=== PATIENT | female | born 1995 | race Caucasian/White ===

== ENCOUNTER 2017-03-27 17:02 | Emergency (ER) | payer SELFPAY ==
[2017-03-27 17:08] VITALS: BP 118/74
--- NOTE | 2017-03-27 17:23 | ER Document Report ---
ED ENT - General Chief Complaint: Sore Throat Stated Complaint: HEADACHE,CONGESTION,SORE THROAT Time Seen by Provider: 03/27/17 17:15 Mode of Arrival: Ambulatory Information source: Patient TRAVEL OUTSIDE OF THE [place] IN LAST 30 DAYS: No - HPI Patient complains to provider of: Nose problem, Throat problem Onset: Other - 4 days Onset/Duration: Gradual, Persistent Quality of pain: Achy Severity: Moderate Pain Level: 3 Associated symptoms: Chills, Congestion, Cough, Runny nose, Sinus pain, Sinus drainage Notes: Is a 21-year-old female who presents to the emergency room complaining of nasal congestion with sore throat and runny nose, as well as cough productive of greenish phlegm 4 days, she denies any sick contacts - Related Data Allergies/Adverse Reactions: chlorpromazine HCl [From Thorazine] Allergy (Verified 03/27/17 17:08) Iodinated Contrast- Oral and IV Dye [IV Dye, Iodine Containing] Allergy ( Verified 03/27/17 17:08) nalbuphine HCl [From Nubain] Allergy (Verified 03/27/17 17:08) Penicillins Allergy (Verified 03/27/17 17:08) quetiapine fumarate [From Seroquel] Allergy (Verified 03/27/17 17:08) Past Medical History - General Information source: Patient - Social History Smoking Status: Never Smoker Family History: Reviewed & Not Pertinent Patient has suicidal ideation: No Patient has homicidal ideation: No Pulmonary Medical History: Reports: Hx Asthma Neurological Medical History: Reports: Hx Migraine, Hx Seizures Renal/ Medical History: Denies: Hx Peritoneal Dialysis Psychiatric Medical History: Reports: Hx Anxiety, Hx Bipolar Disorder, Hx Depression - Immunizations Hx Diphtheria, Pertussis, Tetanus Vaccination: Yes Review of Systems - Review of Systems Constitutional: Chills EENT: See HPI Cardiovascular: No symptoms reported Respiratory: No symptoms reported Gastrointestinal: No symptoms reported Genitourinary: No symptoms reported Female Genitourinary: No symptoms reported Musculoskeletal: No symptoms reported Skin: No symptoms reported Hematologic/Lymphatic: No symptoms reported Neurological/Psychological: No symptoms reported -: Yes All other systems reviewed and negative Physical Exam - Vital signs Vitals: Temp Pulse Resp BP Pulse Ox 98.0 F 91 16 118/74 99 03/27/17 17:06 03/27/17 17:06 03/27/17 17:06 03/27/17 17:06 03/27/17 17:06 - Notes Notes: - General General appearance: Appears well, Alert In distress: None - HEENT Head: Normocephalic, Atraumatic Eyes: Normal Conjunctiva: Normal Extraocular movements intact: Yes Eyelashes: Normal Pupils: PERRL - Respiratory Respiratory status: No respiratory distress - Cardiovascular Rhythm: Regular - Abdominal Inspection: Normal - Back Back: Normal - Extremities General upper extremity: Normal inspection General lower extremity: Normal inspection - Neurological Neuro grossly intact: Yes Orientation: AAOx4 Av Coma Scale Eye Opening: Spontaneous Av Coma Scale Verbal: Oriented [place] Coma Scale Motor: Obeys Commands Av Coma Scale Total: 15 - Psychological Associated symptoms: Normal affect, Normal mood - Skin Skin Temperature: Warm Skin Moisture: Dry Skin Color: Normal - HEENT Sinus: Maxillary, Tenderness Mouth/Lips: Normal Mucous membranes: Normal Pharynx: Erythema, Tonsillar hypertrophy. No: Exudate Course - Vital Signs Vital signs: Temp Pulse Resp BP Pulse Ox 98.0 F 91 16 118/74 99 03/27/17 17:06 03/27/17 17:06 03/27/17 17:06 03/27/17 17:06 03/27/17 17:06 Discharge - Discharge Clinical Impression: Sinusitis Qualifiers: Sinusitis location: maxillary Chronicity: acute Recurrence: non-recurrent Qualified Code(s): J01.00 - Acute maxillary sinusitis, unspecified Condition: Stable Disposition: HOME, SELF-CARE Instructions: Sore Throat ([facility]), Sinusitis ([facility]) Additional Instructions: Follow up with your primary care provider in one to 2 days. Return to the emergency room immediately if symptoms worsen or any additional concerns. Prescriptions: Doxycycline Hyclate 100 mg PO BID #20 tablet Forms: Return to Work
== END 2017-03-27 18:08 | disposition home or self-care (01) ==
LOC: ER 17:02
DX: J01.00 Acute maxillary sinusitis, unspecified (principal); J02.9 Acute pharyngitis, unspecified; R51 Headache; R09.81 Nasal congestion; R09.89 Other specified symptoms and signs involving the circulatory and respiratory systems
CPT/HCPCS: 81025; 99283

== ENCOUNTER 2017-05-24 10:10 | Emergency (ER) | payer SELFPAY ==
--- NOTE | 2017-05-24 10:39 | ER Document Report ---
ED Medical Screen (RME) - General Chief Complaint: Numbness Stated Complaint: NUMBNESS IN BODY, LEGS Time Seen by Provider: 05/24/17 10:29 Notes: 21-year-old female patient with long history of PTSD, bipolar disorder, anxiety , panic disorder, depression, seizure disorder, learning disorder. She states she is on no medications at this time. Previous visits she was reportedly on Dilantin, today she states she has never taken Dilantin. She reports this morning about 9:35 AM while brushing her teeth she lost feeling in her legs and head pain and needle sensation in her arms. She also complained of double vision, nausea, and pain in her back. She states her last menstrual period was 03/22/2017 and she is . She further states that the feeling is starting to come back in her arms now but she still cannot use her lower extremities. I have greeted and performed a rapid initial assessment of this patient. A comprehensive ED assessment and evaluation of the patient, analysis of test results and completion of the medical decision making process will be conducted by additional ED providers. TRAVEL OUTSIDE OF THE [place] IN LAST 30 DAYS: No - Related Data Allergies/Adverse Reactions: chlorpromazine HCl [From Thorazine] Allergy (Verified 03/27/17 17:08) Iodinated Contrast- Oral and IV Dye [IV Dye, Iodine Containing] Allergy ( Verified 03/27/17 17:08) nalbuphine HCl [From Nubain] Allergy (Verified 03/27/17 17:08) Penicillins Allergy (Verified 03/27/17 17:08) quetiapine fumarate [From Seroquel] Allergy (Verified 03/27/17 17:08) Past Medical History - Social History Chew tobacco use (# tins/day): No Frequency of alcohol use: None Drug Abuse: None Pulmonary Medical History: Reports: Hx Asthma Neurological Medical History: Reports: Hx Migraine, Hx Seizures Renal/ Medical History: Denies: Hx Peritoneal Dialysis Psychiatric Medical History: Reports: Hx Anxiety, Hx Bipolar Disorder, Hx Depression Surgical Hx: Negative - Immunizations Hx Diphtheria, Pertussis, Tetanus Vaccination: Yes Physical Exam - Vital signs Vitals: Temp Pulse Resp BP Pulse Ox 98.7 F 86 14 106/63 100 05/24/17 10:13 05/24/17 10:13 05/24/17 10:13 05/24/17 10:13 05/24/17 10:13 Course - Vital Signs Vital signs: Temp Pulse Resp BP Pulse Ox 98.7 F 86 14 106/63 100 05/24/17 10:13 05/24/17 10:13 05/24/17 10:13 05/24/17 10:13 05/24/17 10:13
[2017-05-24 11:03] LABS: ABSOLUTE LYMPHOCYTES (AUTO) 0.9 10^3/uL (0.5-4.7); ABSOLUTE MONOCYTES (AUTO) 0.4 10^3/uL (0.1-1.4); ABSOLUTE NEUT (AUTO) 4.4 10^3/uL (1.7-8.2); BASOPHILS % (AUTO) 0.7 % (0-2); EOSINOPHILS % (AUTO) 0.6 % (0-6); HEMATOCRIT 37.1 % (36.0-47.0); HEMOGLOBIN 12.8 g/dL (12.0-15.5); HGB HCT DIFFERENCE 1.3; LYMPHOCYTES % (AUTO) 15.9 % (13-45); MEAN CORPUSCULAR HEMOGLOBIN 31.8 pg (27.0-33.4); MEAN CORPUSCULAR HGB CONC 34.5 g/dL (32.0-36.0); MEAN CORPUSCULAR VOLUME 92 fl (80-97); MONOCYTES % (AUTO) 6.5 % (3-13); RED BLOOD COUNT 4.02 10^6/uL (3.72-5.28); RED CELL DISTRIBUTION WIDTH 13.1 % (11.5-14.0); SEGMENTED NEUTROPHILS % (AUTO) 76.3 % (42-78); WHITE BLOOD COUNT 5.7 10^3/uL (4.0-10.5)
[2017-05-24 11:17] LABS: ALANINE AMINOTRANSFERASE 22 U/L (9-52); ALBUMIN 4.2 g/dL (3.5-5.0); ALKALINE PHOSPHATASE 39 U/L (38-126); ANION GAP 10 (5-19); ASPARTATE AMINO TRANSFERASE 14 U/L (14-36); BILIRUBIN,DIRECT 0.2 mg/dL (0.0-0.4); BILIRUBIN,TOTAL 0.6 mg/dL (0.2-1.3); BLOOD UREA NITROGEN 8 mg/dL (7-20); CALCIUM 9.3 mg/dL (8.4-10.2); CARBON DIOXIDE 23 mmol/L (22-30); CHLORIDE 105 mmol/L (98-107); CREATININE RESULT 0.64 mg/dL (0.52-1.25); GLUCOSE 88 mg/dL (75-110); POTASSIUM 4.4 mmol/L (3.6-5.0); SODIUM 137.6 mmol/L (137-145); TOTAL PROTEIN 7.2 g/dL (6.3-8.2)
--- NOTE | 2017-05-24 11:27 | ER Document Report ---
ED Neuro Symptoms/Deficit - General Chief Complaint: Numbness Stated Complaint: NUMBNESS IN BODY, LEGS Time Seen by Provider: 05/24/17 10:29 Mode of Arrival: Wheelchair Information source: Patient Notes: Patient presents reporting that around 930 today while she was brushing her teeth that she suddenly felt sweaty and felt faint and then fell on the floor. Patient states that she was awake but she had some shaking of her whole body while she was laying on the floor and is concerned that she might of possibly had a seizure. Patient states that initially she had some double vision and that she could not feel or move her arms or legs bilaterally. Patient states that her vision has since resolved she has normal sensation to her upper extremities and can move her upper extremities. Patient states that she has a pins and needle sensation to bilateral lower extremities from mid thigh distally. Patient denies any recent illness, fever, or drug use. Patient states she has not had any seizures for over 5 years and has not been on any medication for seizures for several years. TRAVEL OUTSIDE OF THE [place] IN LAST 30 DAYS: No - HPI Patient complains to provider of: Paresthesia, Vision Changes Onset: This morning Awoke with symptoms: No Duration: Better Quality of pain: No pain Pain Level: Denies Loss of consciousness: No loss of consciousness Baseline Cognitive: Alert, oriented X 3 Baseline Gait: Walks w/o assistance Alert To: Name/Voice Patient Orientation: Person New weakness: LUE, LLE, RUE, RLE Altered sensation: LUE, LLE, RUE, RLE Vision problem/glaucoma: Yes Associated symptoms: Seizure - possible, Sweaty. denies: Chest pain, Back pain , Falling injury, Nausea, Vomiting Similar symptoms previously: No Recently seen / treated by doctor: No - Related Data Allergies/Adverse Reactions: chlorpromazine HCl [From Thorazine] Allergy (Verified 03/27/17 17:08) Iodinated Contrast- Oral and IV Dye [IV Dye, Iodine Containing] Allergy ( Verified 03/27/17 17:08) nalbuphine HCl [From Nubain] Allergy (Verified 03/27/17 17:08) Penicillins Allergy (Verified 03/27/17 17:08) quetiapine fumarate [From Seroquel] Allergy (Verified 03/27/17 17:08) Home Medications: Current Home Medications No Home Medications 05/24/17 [History] Past Medical History - General Information source: Patient Last Menstrual Period: 03/22/17 - Social History Smoking Status: Never Smoker Chew tobacco use (# tins/day): No Frequency of alcohol use: None Drug Abuse: None Occupation: none Lives with: Spouse/Significant other Family History: Reviewed & Not Pertinent Pulmonary Medical History: Reports: Hx Asthma Neurological Medical History: Reports: Hx Migraine, Hx Seizures Renal/ Medical History: Denies: Hx Peritoneal Dialysis Psychiatric Medical History: Reports: Hx Anxiety, Hx Bipolar Disorder, Hx Depression Surgical Hx: Negative - Immunizations Hx Diphtheria, Pertussis, Tetanus Vaccination: Yes Review of Systems - Review of Systems Constitutional: No symptoms reported. denies: Fever, Recent illness EENT: Double vision - initially, now resolved Cardiovascular: No symptoms reported Respiratory: No symptoms reported. denies: Cough, Short of breath Gastrointestinal: No symptoms reported. denies: Abdominal pain, Nausea, Vomiting Genitourinary: No symptoms reported Female Genitourinary: No symptoms reported Musculoskeletal: No symptoms reported. denies: Back pain, Neck pain Skin: No symptoms reported Hematologic/Lymphatic: No symptoms reported Neurological/Psychological: Weakness, Seizure - possible, Numbness, Tingling Physical Exam - Vital signs Vitals: Temp Pulse Resp BP Pulse Ox 98.7 F 86 14 106/63 100 05/24/17 10:13 05/24/17 10:13 05/24/17 10:13 05/24/17 10:13 05/24/17 10:13 - General General appearance: Appears well, Alert In distress: None - HEENT Head: Normocephalic, Atraumatic Eyes: Normal Conjunctiva: Normal Extraocular movements intact: Yes Eyelashes: Normal Pupils: PERRL Ears: Normal External canal: Normal Tympanic membrane: Normal Nasal: Normal Mouth/Lips: Normal, Other - Tongue intact without any abrasions. No: Laceration Mucous membranes: Normal Pharynx: Normal Neck: Normal, Supple. No: Meningismus - Respiratory Respiratory status: No respiratory distress Chest status: Nontender Breath sounds: Normal. No: Rales, Rhonchi, Stridor, Wheezing Chest palpation: Normal - Cardiovascular Rhythm: Regular Heart sounds: S1 appreciated, S2 appreciated Murmur: No - Abdominal Inspection: Normal Distension: No distension Tenderness: Nontender - Back Back: Normal. No: Deformity/step-off, CVA tenderness, Vertebra tenderness - Extremities General upper extremity: Normal inspection, Nontender, Normal ROM General lower extremity: Normal inspection - Neurological Neuro grossly intact: Yes Cognition: Normal [place] Coma Scale Eye Opening: Spontaneous [place] Coma Scale Verbal: Oriented Av Coma Scale Motor: Obeys Commands [place] Coma Scale Total: 15 Speech: Normal Cranial nerves: Normal Cerebellar coordination: No: Gait ataxia Motor strength normal: LUE, RUE Additional motor exam normals: Equal gas examiner Notes: With distraction patient was able to sit up unassisted, and when a bruise was noted on her leg, patient was able to rotate her leg to the side for better visualization of the contusion. - Psychological Associated symptoms: Normal affect, Normal mood - Skin Skin Temperature: Warm Skin Moisture: Dry Skin Color: Normal Course - Re-evaluation Re-evalutation: 05/24/17 11:26 dye house wheel operator states that patient was able to stand up from the wheelchair in triage so that she could obtain a urine specimen. 05/24/17 12:26 Patient reports that paresthesia and weakness symptoms have completely resolved. The patient states that she is hungry and has a mild headache now. Pt with 5/5 muscle strength and tone to bilat UE and LE 05/24/17 13:45 Patient presently denies any complaints at this time. Patient able to fully move all of her upper and lower extremities bilaterally. 05/24/17 13:[address] Regan regarding patient presentation, diagnostic test results and exam findings. No concern for preeclampsia or eclampsia at this time as patient is not hypertensive and is without proteinuria. Patient neurologically intact at this time and has ambulated without difficulty while here in the emergency department. Recommends outpatient follow-up with neurologist for further evaluation - Vital Signs Vital signs: Temp Pulse Resp BP Pulse Ox 98.1 F 88 14 110/51 L 100 05/24/17 14:08 05/24/17 14:08 05/24/17 10:13 05/24/17 14:08 05/24/17 14:08 - Laboratory Result Diagrams: 05/24/17 10:45 05/24/17 10:45 Laboratory results interpreted by me: 05/24/17 05/24/17 10:45 10:45 Beta HCG, Quant 89972.00 H Ur Leukocyte Esterase TRACE H Labs- Entire Visit 0805/24/17 05/24/17 10:45 10:45 10:45 WBC 5.7 RBC 4.02 Hgb 12.8 Hct 37.1 MCV 92 MCH 31.8 MCHC 34.5 RDW 13.1 Plt Count 206 Seg Neutrophils % 76.3 Lymphocytes % 15.9 Monocytes % 6.5 Eosinophils % 0.6 Basophils % 0.7 Absolute Neutrophils 4.4 Absolute Lymphocytes 0.9 Absolute Monocytes 0.4 Absolute Eosinophils 0.0 Absolute Basophils 0.0 ESR 13 Sodium 137.6 Potassium 4.4 Chloride 105 Carbon Dioxide 23 Anion Gap 10 BUN 8 Creatinine 0.64 Est GFR ( Amer) > 60 Est GFR (Non-Af Amer) > 60 Glucose 88 Calcium 9.3 Total Bilirubin 0.6 Direct Bilirubin 0.2 Indirect Bilirubin Not Reportable Neonat Total Bilirubin Not Reportable AST 14 ALT 22 Alkaline Phosphatase 39 Creatine Kinase 36 Total Protein 7.2 Albumin 4.2 Beta HCG, Quant 50454.00 H Total Beta HCG POSITIVE Urine Color Urine Appearance Urine pH Ur Specific [place] Urine Protein Urine Glucose (UA) Urine Ketones Urine Blood Urine Nitrite Urine Bilirubin Urine Urobilinogen Ur Leukocyte Esterase Urine WBC (Auto) Urine RBC (Auto) Urine Bacteria (Auto) Squamous Epi Cells Auto Amorphous Sediment Auto Urine Mucus (Auto) Urine Ascorbic Acid Urine Opiates Screen Urine Methadone Screen Ur Barbiturates Screen Ur Phencyclidine Scrn Ur Amphetamines Screen U Benzodiazepines Scrn Urine Cocaine Screen U Marijuana (THC) Screen 05/24/17 05/24/17 10:45 10:45 WBC RBC Hgb Hct MCV MCH MCHC RDW Plt Count Seg Neutrophils % Lymphocytes % Monocytes % Eosinophils % Basophils % Absolute Neutrophils Absolute Lymphocytes Absolute Monocytes Absolute Eosinophils Absolute Basophils ESR Sodium Potassium Chloride Carbon Dioxide Anion Gap BUN Creatinine Est GFR ( Amer) Est GFR (Non-Af Amer) Glucose Calcium Total Bilirubin Direct Bilirubin Indirect Bilirubin Neonat Total Bilirubin AST ALT Alkaline Phosphatase Creatine Kinase Total Protein Albumin Beta HCG, Quant Total Beta HCG Urine Color YELLOW Urine Appearance CLOUDY Urine pH 7.0 Ur Specific [place] 1.015 Urine Protein NEGATIVE Urine Glucose (UA) NEGATIVE Urine Ketones NEGATIVE Urine Blood NEGATIVE Urine Nitrite NEGATIVE Urine Bilirubin NEGATIVE Urine Urobilinogen NEGATIVE Ur Leukocyte Esterase TRACE H Urine WBC (Auto) 8 Urine RBC (Auto) 2 Urine Bacteria (Auto) TRACE Squamous Epi Cells Auto <1 Amorphous Sediment Auto TRACE Urine Mucus (Auto) RARE Urine Ascorbic Acid NEGATIVE Urine Opiates Screen NEGATIVE Urine Methadone Screen NEGATIVE Ur Barbiturates Screen NEGATIVE Ur Phencyclidine Scrn NEGATIVE Ur Amphetamines Screen NEGATIVE U Benzodiazepines Scrn NEGATIVE Urine Cocaine Screen NEGATIVE U Marijuana (THC) Screen NEGATIVE 05/24/17 18:13 Discharge - Discharge Clinical Impression: episode of paresthesia to extremities, Episode of weakness to extremities, test positive, Episode of shaking Condition: Stable Disposition: HOME, SELF-CARE Instructions: Numbness or Paresthesia ([facility]) Additional Instructions: Return immediately for any new or worsening symptoms Followup with your primary care provider, call tomorrow to make a followup appointment Follow-up with a neurologist for further evaluation Follow-up with the health department to establish care Forms: Return to Work Referrals: [facility] [NO LOCAL MD] - Follow up in 3-5 days JOHN HORTON MD [ACTIVE STAFF] - Follow up tomorrow [facility] [Provider Group] - Follow up tomorrow
[2017-05-24 11:30] LABS: ADD ON TESTING BLD IN LAB ACKNOWLEDGE
[2017-05-24 11:40] LABS: CREATINE KINASE 36 U/L (30-135)
[2017-05-24 11:54] LABS: ERYTHROCYTE SEDIMENTATION RATE 13 mm/hr (0-20)
[2017-05-24] MEDS ORDERED: ACETAMINOPHEN 325 MG TABLET PO ONE (12:26)
[2017-05-24 12:35] LABS: AMORPHOUS SEDIMENT,URINE TRACE /HPF; APPEARANCE,URINE CLOUDY; BILIRUBIN,URINE NEGATIVE (NEGATIVE); GLUCOSE, URINE NEGATIVE (NEGATIVE); KETONES,URINE NEGATIVE (NEGATIVE); LEUKOCYTE ESTERASE,URINE TRACE (NEGATIVE); NITRITE,URINE NEGATIVE (NEGATIVE); PROTEIN,URINE NEGATIVE (NEGATIVE); URINE SPECIFIC GRAVITY 1.015; UROBILINOGEN,URINE NEGATIVE mg/dL (<2.0)
[2017-05-24 12:48] LABS: URINE BARBITURATES SCREEN NEGATIVE; URINE METHADONE SCREEN NEGATIVE; URINE OPIATES LOW NEGATIVE; URINE PHENCYCLIDINE SCREEN NEGATIVE
[2017-05-24 14:11] VITALS: BP 110/51
== END 2017-05-24 14:10 | disposition home or self-care (01) ==
LOC: ER 10:10
DX: Z32.01 Encounter for pregnancy test, result positive (principal); R20.0 Anesthesia of skin; R55 Syncope and collapse; R53.1 Weakness; R25.1 Tremor, unspecified
CPT/HCPCS: 36415; 80053; 80307; 81001; 82550; 84702; 85025; 85652; 87086; 99284

== ENCOUNTER 2017-06-29 17:05 | Emergency (ER) | payer SELFPAY ==
--- NOTE | 2017-06-29 17:53 | ER Document Report ---
ED Medical Screen (RME) - General Chief Complaint: Vaginal Bleeding Stated Complaint: VAGINAL BLEEDING Time Seen by Provider: 06/29/17 17:52 Notes: Patient states that she is approximately 3 months . She states that she started tonight with bleeding and abdominal cramping with some clotting. She states she has had 2 previous miscarriages. TRAVEL OUTSIDE OF THE [place] IN LAST 30 DAYS: No - Related Data Allergies/Adverse Reactions: chlorpromazine HCl [From Thorazine] Allergy (Verified 03/27/17 17:08) Iodinated Contrast- Oral and IV Dye [IV Dye, Iodine Containing] Allergy ( Verified 03/27/17 17:08) nalbuphine HCl [From Nubain] Allergy (Verified 03/27/17 17:08) Penicillins Allergy (Verified 03/27/17 17:08) quetiapine fumarate [From Seroquel] Allergy (Verified 03/27/17 17:08) Past Medical History Pulmonary Medical History: Reports: Hx Asthma Neurological Medical History: Reports: Hx Migraine, Hx Seizures Renal/ Medical History: Denies: Hx Peritoneal Dialysis Psychiatric Medical History: Reports: Hx Anxiety, Hx Bipolar Disorder, Hx Depression - Immunizations Hx Diphtheria, Pertussis, Tetanus Vaccination: Yes
[2017-06-29 18:19] LABS: AMORPHOUS SEDIMENT,URINE TRACE /HPF; APPEARANCE,URINE CLOUDY; BILIRUBIN,URINE NEGATIVE (NEGATIVE); GLUCOSE, URINE NEGATIVE (NEGATIVE); KETONES,URINE NEGATIVE (NEGATIVE); LEUKOCYTE ESTERASE,URINE MODERATE (NEGATIVE); NITRITE,URINE NEGATIVE (NEGATIVE); PROTEIN,URINE NEGATIVE (NEGATIVE); URINE SPECIFIC GRAVITY 1.008; UROBILINOGEN,URINE NEGATIVE mg/dL (<2.0)
[2017-06-29 18:34] LABS: ABSOLUTE EOSINOPHILS # (AUTO) 0.1 10^3/uL (0.0-0.6); ABSOLUTE LYMPHOCYTES (AUTO) 1.8 10^3/uL (0.5-4.7); ABSOLUTE MONOCYTES (AUTO) 0.5 10^3/uL (0.1-1.4); ABSOLUTE NEUT (AUTO) 5.8 10^3/uL (1.7-8.2); BASOPHILS % (AUTO) 0.4 % (0-2); EOSINOPHILS % (AUTO) 0.7 % (0-6); HEMOGLOBIN 11.8 g/dL (12.0-15.5); HGB HCT DIFFERENCE 3.4; LYMPHOCYTES % (AUTO) 22.4 % (13-45); MEAN CORPUSCULAR HEMOGLOBIN 32.3 pg (27.0-33.4); MEAN CORPUSCULAR HGB CONC 36.9 g/dL (32.0-36.0); MEAN CORPUSCULAR VOLUME 88 fl (80-97); MONOCYTES % (AUTO) 6.1 % (3-13); RED BLOOD COUNT 3.66 10^6/uL (3.72-5.28); RED CELL DISTRIBUTION WIDTH 12.7 % (11.5-14.0); SEGMENTED NEUTROPHILS % (AUTO) 70.4 % (42-78); WHITE BLOOD COUNT 8.2 10^3/uL (4.0-10.5)
[2017-06-29 18:59] LABS: ALANINE AMINOTRANSFERASE 19 U/L (9-52); ALBUMIN 3.9 g/dL (3.5-5.0); ALKALINE PHOSPHATASE 44 U/L (38-126); ANION GAP 11 (5-19); ASPARTATE AMINO TRANSFERASE 15 U/L (14-36); BILIRUBIN,DIRECT 0.2 mg/dL (0.0-0.4); BILIRUBIN,TOTAL 0.2 mg/dL (0.2-1.3); BLOOD UREA NITROGEN 8 mg/dL (7-20); CALCIUM 9.6 mg/dL (8.4-10.2); CARBON DIOXIDE 22 mmol/L (22-30); CHLORIDE 103 mmol/L (98-107); CREATININE RESULT 0.57 mg/dL (0.52-1.25); GLUCOSE 58 mg/dL (75-110); SODIUM 135.7 mmol/L (137-145); TOTAL PROTEIN 6.8 g/dL (6.3-8.2)
--- NOTE | 2017-06-29 21:59 | ER Document Report ---
ED GI/ - General Chief Complaint: Vaginal Bleeding Stated Complaint: VAGINAL BLEEDING Time Seen by Provider: 06/29/17 17:52 Notes: Patient is a 21-year-old female who comes emergency department for chief complaint of vaginal bleeding and cramping which happened just prior to arrival. She states bleeding stopped, cramping stopped, she now has no symptoms. She states she is at 12 weeks gestation by last menstrual period, she states that she had a previous with delivery but then shortly after that the child . She denies any surgeries, denies any medications other than vitamins. TRAVEL OUTSIDE OF THE [place] IN LAST 30 DAYS: No - Related Data Allergies/Adverse Reactions: chlorpromazine HCl [From Thorazine] Allergy (Verified 06/29/17 17:54) Iodinated Contrast- Oral and IV Dye [IV Dye, Iodine Containing] Allergy ( Verified 06/29/17 17:54) nalbuphine HCl [From Nubain] Allergy (Verified 06/29/17 17:54) Penicillins Allergy (Verified 06/29/17 17:54) quetiapine fumarate [From Seroquel] Allergy (Verified 06/29/17 17:54) Past Medical History - General Information source: Patient - Social History Smoking Status: Never Smoker Chew tobacco use (# tins/day): No Frequency of alcohol use: None Drug Abuse: None Lives with: Family Family History: Reviewed & Not Pertinent Pulmonary Medical History: Reports: Hx Asthma Neurological Medical History: Reports: Hx Migraine, Hx Seizures Renal/ Medical History: Denies: Hx Peritoneal Dialysis Psychiatric Medical History: Reports: Hx Anxiety, Hx Bipolar Disorder, Hx Depression Surgical Hx: Negative - Immunizations Hx Diphtheria, Pertussis, Tetanus Vaccination: Yes Review of Systems - Review of Systems Constitutional: No symptoms reported EENT: No symptoms reported Cardiovascular: No symptoms reported Respiratory: No symptoms reported Gastrointestinal: See HPI Genitourinary: See HPI Female Genitourinary: See HPI Musculoskeletal: No symptoms reported Skin: No symptoms reported Hematologic/Lymphatic: No symptoms reported Neurological/Psychological: No symptoms reported Physical Exam - Vital signs Vitals: Temp Pulse Resp BP Pulse Ox 98.3 F 89 16 107/68 98 06/29/17 17:30 06/29/17 17:30 06/29/17 17:30 06/29/17 17:30 06/29/17 17:30 Interpretation: Normal - General General appearance: Appears well, Alert In distress: None - HEENT Head: Normocephalic, Atraumatic Eyes: Normal Pupils: PERRL - Respiratory Respiratory status: No respiratory distress Chest status: Nontender Breath sounds: Normal Chest palpation: Normal - Cardiovascular Rhythm: Regular. No: Tachycardia Heart sounds: Normal auscultation, S1 appreciated, S2 appreciated Murmur: No - Abdominal Inspection: Normal Distension: No distension Bowel sounds: Normal Tenderness: Nontender - Completely nontender abdominal examination. No: Tender , Guarding Organomegaly: No organomegaly - Back Back: Normal, Nontender - Extremities General upper extremity: Normal inspection, Nontender, Normal color, Normal ROM , Normal temperature General lower extremity: Normal inspection, Nontender, Normal color, Normal ROM , Normal temperature, Normal weight bearing. No: Love's sign - Neurological Neuro grossly intact: Yes Cognition: Normal Orientation: AAOx4 Av Coma Scale Eye Opening: Spontaneous Av Coma Scale Verbal: Oriented [place] Coma Scale Motor: Obeys Commands [place] Coma Scale Total: 15 Speech: Normal Motor strength normal: LUE, RUE, LLE, RLE Sensory: Normal - Psychological Associated symptoms: Normal affect, Normal mood - Skin Skin Temperature: Warm Skin Moisture: Dry Skin Color: Normal Course - Re-evaluation Re-evalutation: Patient very well-appearing on exam, soft benign abdomen. CBC unremarkable, chemistry unremarkable, hCG appropriately elevated. Urinalysis suggestive of infection. Patient denies current bleeding. She states that she has a full workup tomorrow with the health department, declines pelvic exam at this time. I recommended that we test her blood type because of the bleeding she had to see if she needs RhoGam, patient refused, she states she has had her blood type checked multiple times and it is a positive and she has never needed RhoGam. Ultrasound with intrauterine which is living, right ovarian cyst with no torsion, asymptomatic on my examination. Discussed follow-up recommendations , precautions, return precautions including symptoms of torsion, provided with copy of the ultrasound. Patient states understanding and agreement. - Vital Signs Vital signs: Temp Pulse Resp BP Pulse Ox 98.2 F 88 15 112/55 L 100 06/29/17 23:27 06/29/17 23:27 06/29/17 23:27 06/29/17 23:27 06/29/17 23:27 - Laboratory Result Diagrams: 06/29/17 18:10 06/29/17 18:10 Laboratory results interpreted by me: 06/29/17 06/29/17 06/29/17 17:30 18:10 18:10 RBC 3.66 L Hgb 11.8 L Hct 32.0 L MCHC 36.9 H Sodium 135.7 L Glucose 58 L Beta HCG, Quant 985236.00 H Urine Blood MODERATE H Ur Leukocyte Esterase MODERATE H Discharge - Discharge Clinical Impression: Vaginal bleeding in patient at less than 20 weeks gestation, Abdominal cramping Condition: Stable Disposition: HOME, SELF-CARE Additional Instructions: Ultrasound shows a living in the uterus, also shows a cyst on the right ovary. Urinalysis shows urinary tract infection. Take Keflex antibiotics as prescribed. Recommendation is to perform a pelvic rest and precautions, avoid any significant physical activity including lifting, jumping, running, sexual intercourse until cleared to do so by HEARING IMPAIRED TEACHER. Follow-up with your appointment tomorrow as planned. Return to the emergency department for any concerning or worsening symptoms including severe pain, vomiting, or any other concerning symptoms. Prescriptions: Cephalexin Monohydrate [Keflex 500 mg Capsule] 500 mg PO BID #10 capsule
--- NOTE | 2017-06-29 22:58 | RADIOLOGY REPORT (SQ) ---
EXAM DESCRIPTION: U/S OB TRANSVAG W/DOPPLER COMPLETED DATE/TIME: 06/29/2017 9:45 pm REASON FOR STUDY: preg/pain/bleeding COMPARISON: None. TECHNIQUE: Transvaginal static and realtime grayscale images acquired of the pelvis. Additional norbert cted spectral and color Doppler images recorded. All images stored on PACs. [id number] LIMITATIONS: None. FINDINGS: FETUS: Living intrauterine . EGA: 11 weeks 3 days ELIA: 01/15/2018 FHR: 169 beats per minute. SUBCHORIONIC BLEED: No SIZE OF BLEED: Not applicable. UTERUS: No masses. No anomalies. CERVICAL LENGTH: 2.5 cm Closed. RIGHT ADNEXA: Normal ovary with normal vascular flow. No adnexal free fluid. Hypoechoic area is identified measuring 2.8 x 2.5 x 3.9 cm in diameters which contain some internal e chogenicity and is most consistent with a complicated cyst. A 2nd hypoechoic area is identified cony uring 1.5 x 2.1 x 1.3 cm which may represent a corpus lutein cysts. LEFT ADNEXA: Left ovary was not visualized. FREE FLUID: None. OTHER: No other significant finding. IMPRESSION: LIVING INTRAUTERINE . EGA 11 weeks 3 days Trimester of : First - 0 to 13 weeks. TECHNICAL DOCUMENTATION: JOB ID: [id number]- All Rights Reserved
[2017-06-29] MEDS ORDERED: CEPHALEXIN 500 MG CAPSULE PO ONE (23:20)
[2017-06-29 23:48] VITALS: BP 112/55
== END 2017-06-29 23:40 | disposition home or self-care (01) ==
LOC: ER 17:05
DX: O20.9 Hemorrhage in early pregnancy, unspecified (principal); R10.9 Unspecified abdominal pain; Z3A.12 12 weeks gestation of pregnancy; Z88.0 Allergy status to penicillin
CPT/HCPCS: 36415; 76817; 80053; 81001; 84702; 85025; 93976; 99284; L3650

== ENCOUNTER 2017-08-08 16:01 | Emergency (ER) | payer MEDICAID ==
--- NOTE | 2017-08-08 16:16 | ER Document Report ---
ED Medical Screen (RME) - General Chief Complaint: Abdominal Pain Stated Complaint: RIGHT SIDE PAIN Time Seen by Provider: 08/08/17 16:11 Mode of Arrival: Ambulatory Information source: Patient TRAVEL OUTSIDE OF THE [place].S. IN LAST 30 DAYS: No - HPI Patient complains to provider of: Coughing, post tussive emesis, 17 weeks , right lower quadrant pain - Related Data Allergies/Adverse Reactions: chlorpromazine HCl [From Thorazine] Allergy (Verified 06/29/17 17:54) Iodinated Contrast- Oral and IV Dye [IV Dye, Iodine Containing] Allergy ( Verified 06/29/17 17:54) nalbuphine HCl [From Nubain] Allergy (Verified 06/29/17 17:54) Penicillins Allergy (Verified 06/29/17 17:54) quetiapine fumarate [From Seroquel] Allergy (Verified 06/29/17 17:54) Past Medical History Pulmonary Medical History: Reports: Hx Asthma Neurological Medical History: Reports: Hx Migraine, Hx Seizures Renal/ Medical History: Denies: Hx Peritoneal Dialysis Psychiatric Medical History: Reports: Hx Anxiety, Hx Bipolar Disorder, Hx Depression - Immunizations Hx Diphtheria, Pertussis, Tetanus Vaccination: Yes Physical Exam - Vital signs Vitals: Temp Pulse Resp BP Pulse Ox 98.0 F 94 12 112/57 L 97 08/08/17 16:02 08/08/17 16:02 08/08/17 16:02 08/08/17 16:02 08/08/17 16:02 Course - Vital Signs Vital signs: Temp Pulse Resp BP Pulse Ox 98.0 F 94 12 112/57 L 97 08/08/17 16:02 08/08/17 16:02 08/08/17 16:02 08/08/17 16:02 08/08/17 16:02
[2017-08-08 16:50] LABS: ABSOLUTE LYMPHOCYTES (AUTO) 1.6 10^3/uL (0.5-4.7); ABSOLUTE MONOCYTES (AUTO) 0.5 10^3/uL (0.1-1.4); ABSOLUTE NEUT (AUTO) 5.8 10^3/uL (1.7-8.2); BASOPHILS % (AUTO) 0.5 % (0-2); EOSINOPHILS % (AUTO) 0.6 % (0-6); HEMATOCRIT 32.5 % (36.0-47.0); HEMOGLOBIN 11.3 g/dL (12.0-15.5); HGB HCT DIFFERENCE 1.4; LYMPHOCYTES % (AUTO) 20.2 % (13-45); MEAN CORPUSCULAR HEMOGLOBIN 31.6 pg (27.0-33.4); MEAN CORPUSCULAR HGB CONC 34.9 g/dL (32.0-36.0); MEAN CORPUSCULAR VOLUME 91 fl (80-97); MONOCYTES % (AUTO) 5.8 % (3-13); RED BLOOD COUNT 3.59 10^6/uL (3.72-5.28); SEGMENTED NEUTROPHILS % (AUTO) 72.9 % (42-78); WHITE BLOOD COUNT 7.9 10^3/uL (4.0-10.5)
--- NOTE | 2017-08-08 16:55 | ER Document Report ---
ED GI/ - General Chief Complaint: Abdominal Pain Stated Complaint: RIGHT SIDE PAIN Time Seen by Provider: 08/08/17 16:11 Mode of Arrival: Ambulatory Information source: Patient TRAVEL OUTSIDE OF THE [place]. IN LAST 30 DAYS: No - HPI Patient complains to provider of: Abdominal pain, Other - COUGH Onset: Other - COUGH BEGAN LAST WEEK, ABD PAIN THIS AM Timing/Duration: Sudden Quality of pain: Cramping Severity at maximum: Moderate Severity in ED: Mild Context: - 17 WKS Location: RLQ Vaginal bleeding (Compared to normal period): None Menstrual period history: - Related Data Allergies/Adverse Reactions: chlorpromazine HCl [From Thorazine] Allergy (Verified 08/08/17 16:19) Iodinated Contrast- Oral and IV Dye [IV Dye, Iodine Containing] Allergy ( Verified 08/08/17 16:19) nalbuphine HCl [From Nubain] Allergy (Verified 08/08/17 16:19) Penicillins Allergy (Verified 08/08/17 16:19) quetiapine fumarate [From Seroquel] Allergy (Verified 08/08/17 16:19) Past Medical History - General Information source: Patient - Social History Smoking Status: Never Smoker Chew tobacco use (# tins/day): No Frequency of alcohol use: None Drug Abuse: None Lives with: Family Family History: Reviewed & Not Pertinent Patient has suicidal ideation: No Patient has homicidal ideation: No - Past Medical History Cardiac Medical History: Reports: None Pulmonary Medical History: Reports: Hx Asthma Neurological Medical History: Reports: Hx Migraine, Hx Seizures Endocrine Medical History: Reports: None Renal/ Medical History: Reports: None. Denies: Hx Peritoneal Dialysis Malignancy Medical History: Reports: None GI Medical History: Reports: None Musculoskeltal Medical History: Reports None Psychiatric Medical History: Reports: Hx Anxiety, Hx Bipolar Disorder, Hx Depression Surgical Hx: Negative - Immunizations Hx Diphtheria, Pertussis, Tetanus Vaccination: Yes Review of Systems - Review of Systems Constitutional: No symptoms reported. denies: Chills, Diaphoresis, Fever EENT: No symptoms reported Cardiovascular: No symptoms reported Respiratory: Cough - CLEAR MUCUS, DAILY x 1 WEEK Gastrointestinal: No symptoms reported Genitourinary: No symptoms reported Female Genitourinary: No symptoms reported Musculoskeletal: No symptoms reported Skin: No symptoms reported Neurological/Psychological: No symptoms reported Physical Exam - Vital signs Vitals: Temp Pulse Resp BP Pulse Ox 98.0 F 94 12 112/57 L 97 08/08/17 16:02 08/08/17 16:02 08/08/17 16:02 08/08/17 16:02 08/08/17 16:02 Interpretation: Normal. No: Tachycardic, Tachypneic, Febrile - General General appearance: Appears well, Alert In distress: None - HEENT Head: Normocephalic Eyes: Normal Conjunctiva: Normal Ears: Normal Nasal: Normal Mouth/Lips: Normal Mucous membranes: Normal - Respiratory Respiratory status: No respiratory distress Chest status: Nontender Breath sounds: Normal - Cardiovascular Rhythm: Regular Heart sounds: Normal auscultation Murmur: No - Abdominal Inspection: Gravid female Distension: No distension Bowel sounds: Normal Tenderness: Tender - SLIGHT, RLQ - Back Back: Normal - Extremities General upper extremity: Normal inspection General lower extremity: Normal inspection. No: Tender, Edema - Neurological Neuro grossly intact: Yes Cognition: Normal Orientation: AAOx4 - Psychological Associated symptoms: Normal affect, Normal mood - Skin Skin Temperature: Warm Skin Moisture: Dry Skin Color: Normal Skin Turgor: Elastic Course - Vital Signs Vital signs: Temp Pulse Resp BP Pulse Ox 98.0 F 94 12 112/57 L 97 08/08/17 16:02 08/08/17 16:02 08/08/17 16:02 08/08/17 16:02 08/08/17 16:02 - Laboratory Result Diagrams: 08/08/17 16:20 08/08/17 16:20 Laboratory results interpreted by me: 08/08/17 08/08/17 16:20 16:20 RBC 3.59 L Hgb 11.3 L Hct 32.5 L Urine Blood SMALL H Urine Urobilinogen 4.0 H Ur Leukocyte Esterase MODERATE H Discharge - Discharge Clinical Impression: Second trimester Urinary tract infection Qualifiers: Urinary tract infection type: site unspecified Hematuria presence: without hematuria Qualified Code(s): N39.0 - Urinary tract infection, site not specified Condition: Stable Disposition: HOME, SELF-CARE Instructions: Urinary Tract Infection ([facility]), Nitrofurantoin ([facility]) Additional Instructions: REST, DRINK PLENTY OF FLUIDS. TAKE MACROBID DIRECTED. YOU MAY TAKE MUCINEX TO LOOSEN CONGESTION IF NEEDED. FOLLOW UP WITH OB. APPOINTED TO CONTINUE PRE-ALY CARE. Prescriptions: Nitrofurantoin Monohyd/M-Cryst [Macrobid 100 mg Capsule] 100 mg PO BID #20 capsule
[2017-08-08 17:01] LABS: AMORPHOUS SEDIMENT,URINE TRACE /HPF; APPEARANCE,URINE CLOUDY; BILIRUBIN,URINE NEGATIVE (NEGATIVE); GLUCOSE, URINE NEGATIVE (NEGATIVE); KETONES,URINE NEGATIVE (NEGATIVE); LEUKOCYTE ESTERASE,URINE MODERATE (NEGATIVE); NITRITE,URINE NEGATIVE (NEGATIVE); PROTEIN,URINE NEGATIVE (NEGATIVE); URINE SPECIFIC GRAVITY 1.017
[2017-08-08 17:10] LABS: ALANINE AMINOTRANSFERASE 31 U/L (9-52); ALKALINE PHOSPHATASE 48 U/L (38-126); ANION GAP 12 (5-19); ASPARTATE AMINO TRANSFERASE 25 U/L (14-36); BILIRUBIN,DIRECT 0.4 mg/dL (0.0-0.4); BILIRUBIN,TOTAL 0.5 mg/dL (0.2-1.3); BLOOD UREA NITROGEN 8 mg/dL (7-20); CALCIUM 9.2 mg/dL (8.4-10.2); CARBON DIOXIDE 23 mmol/L (22-30); CHLORIDE 104 mmol/L (98-107); CREATININE RESULT 0.74 mg/dL (0.52-1.25); GLUCOSE 79 mg/dL (75-110); LIPASE 141.4 U/L (23-300); POTASSIUM 3.8 mmol/L (3.6-5.0); SODIUM 138.7 mmol/L (137-145)
[2017-08-08] MEDS ORDERED: NITROFURANTOIN MONOHYD/M-CRYST 100 MG CAPSULE PO ONE (17:34)
[2017-08-08 18:16] VITALS: BP 119/64
== END 2017-08-08 18:15 | disposition home or self-care (01) ==
LOC: ER 16:01
DX: O23.42 Unspecified infection of urinary tract in pregnancy, second trimester (principal); O26.892 Other specified pregnancy related conditions, second trimester; R10.31 Right lower quadrant pain; R05 Cough; O99.512 Diseases of the respiratory system complicating pregnancy, second trimester; J45.909 Unspecified asthma, uncomplicated; Z3A.17 17 weeks gestation of pregnancy; Z88.8 Allergy status to other drugs, medicaments and biological substances; Z91.041 Radiographic dye allergy status; Z88.0 Allergy status to penicillin; Z88.5 Allergy status to narcotic agent
CPT/HCPCS: 99284; 36415; 87086; 83690; 85025; 80053; 81001; J3490; J8499

== ENCOUNTER 2017-09-15 19:54 | Outpatient (CLI) | payer MEDICAID ==
[2017-09-15 20:00] LABS: APPEARANCE,URINE CLEAR; BILIRUBIN,URINE NEGATIVE (NEGATIVE); GLUCOSE, URINE NEGATIVE (NEGATIVE); KETONES,URINE TRACE mg/dL (NEGATIVE); LEUKOCYTE ESTERASE,URINE NEGATIVE (NEGATIVE); NITRITE,URINE NEGATIVE (NEGATIVE); PROTEIN,URINE NEGATIVE (NEGATIVE); URINE SPECIFIC GRAVITY 1.008; UROBILINOGEN,URINE NEGATIVE mg/dL (<2.0)
[2017-09-15 20:17] LABS: URINE BARBITURATES SCREEN NEGATIVE; URINE METHADONE SCREEN NEGATIVE; URINE OPIATES LOW NEGATIVE; URINE PHENCYCLIDINE SCREEN NEGATIVE
--- NOTE | 2017-09-16 01:04 | RADIOLOGY REPORT (SQ) ---
EXAM DESCRIPTION: U/S OB LIMITED CLINICAL HISTORY: 22 years, Female, cervical length/placenta assessment for bleeding COMPARISON: None. TECHNIQUE: Transabdominal. LIMITATIONS: Targeted limited sonogram. FINDINGS: 2.9 cm cervical length. Cervix appears closed. TRISTA is 5.4 cm. heart rate is 147 bpm. Placenta is predominantly fundal (as reviewed with available rad technologist discordant with worksheet). No evidence of placenta previa. No evidence of abruption. Vertex position. TRISTA is 5.4 cm. IMPRESSION: Limited exam. 2010 [employer]- All Rights Reserved
== END 2017-09-15 23:24 | disposition home or self-care (01) ==
LOC: LC 19:54
PROVIDERS: ATTEND Obstetrics & Gynecology
PROC: 4A1HXCZ Monitoring of Products of Conception, Cardiac Rate, External Approach (ICD-10-PCS; principal; 2017-09-15)
DX: O46.92 Antepartum hemorrhage, unspecified, second trimester (principal); Z3A.22 22 weeks gestation of pregnancy
CPT/HCPCS: 76815; 80307; 81001

== ENCOUNTER 2018-03-04 08:02 | Emergency (ER) | payer MEDICAID ==
--- NOTE | 2018-03-04 08:32 | ER Document Report ---
HPI - HPI Pain Level: 4 Notes: Patient is a 22-year-old female with no significant past medical history who presents to the ED complaining of a sore throat intermittently 1 week with nasal congestion/discharge as well as left eye redness that started this morning with green discharge and matting. Patient states that she has had strep in the past. She is still eating and drinking without difficulties. She is urinating normally and having normal bowel movements. She has no other concerns or complaints at this time. Patient states that she has not had anything in her eye and does not have any sensation of foreign body. Patient states that she did not scratch her eye. She does not wear contacts. Denies any headache, fever, neck pain, URI, drooling, hoarseness, trouble swallowing, chest pain, palpitations, syncope, cough, shortness of breath, wheeze, dyspnea, abdominal pain, nausea/vomiting/diarrhea, urinary retention, dysuria, hematuria , or rash. - ROS Systems Reviewed and Negative: Yes All other systems reviewed and negative - REPRODUCTIVE Reproductive: DENIES: : Past Medical History - Social History Smoking Status: Never Smoker Family History: Reviewed & Not Pertinent Pulmonary Medical History: Reports: Hx Asthma Neurological Medical History: Reports: Hx Migraine, Hx Seizures Renal/ Medical History: Denies: Hx Peritoneal Dialysis Psychiatric Medical History: Reports: Hx Anxiety, Hx Bipolar Disorder, Hx Depression - Immunizations Hx Diphtheria, Pertussis, Tetanus Vaccination: Yes Vertical Provider Document - CONSTITUTIONAL Agree With Documented VS: Yes Notes: PHYSICAL EXAMINATION: GENERAL: Well-appearing, well-nourished and in no acute distress. A&Ox4. Answers questions appropriately. Moves comfortably w/o notable distress HEAD: Atraumatic, normocephalic. EYES: Pupils equal round and reactive to light, extraocular movements intact, sclera anicteric, Left conjunctiva injected with scant purulent discharge. Rt conjunctiva wnl. No nystagmus. ENT: EAC clear b/l. TM's intact b/l without erythema, fluid, or perforation. Nares patent and with clear discharge. oropharynx mild erythema without exudates. 1+ tonsilar hypertrophy without erythema or exudate. No palatine shift. Uvula midline. No tongue protrusion. No drooling, hoarseness, or airway compromise. Moist mucous membranes. No sinus tenderness. NECK: Normal range of motion, supple without lymphadenopathy. No rigidity/ meningismus. LUNGS: Breath sounds clear to auscultation bilaterally and equal. No wheezes rales or rhonchi. No retractions HEART: Regular rate and rhythm without murmurs, rubs, gallops. ABDOMEN: Soft, nontender, nondistended abdomen. No guarding, no rebound. No masses appreciated. Normal bowel sounds present. No CVA tenderness bilaterally. No hepatosplenomegaly. NEUROLOGICAL: Normal speech, normal gait. PSYCH: Normal mood, normal affect. SKIN: Warm, Dry, normal turgor, no rashes or lesions noted. - INFECTION CONTROL TRAVEL OUTSIDE OF THE [place] IN LAST 30 DAYS: No Course - Re-evaluation Re-evalutation: 03/04/18 09:07 Patient is an afebrile, well-hydrated, 22-year-old female who presents to the ED with an acute pharyngitis/URI, suspect viral, and left acute conjunctivitis. Vitals are acceptable. PE is otherwise unremarkable. Rapid strep was negative with throat culture pending. Patient is nontoxic-appearing. She has no significant tachycardia, tachypnea, or hypoxia. Low suspicion for any meningitis, sepsis, peritonsillar/pharyngeal abscess, respiratory compromise, Johnnie's, orbital cellulitis, acute angle glaucoma, foreign body, or other emergent systemic condition at this time. Patient is aware this condition can change from initial presentation and she needs to monitor symptoms closely. Rx for polytrim. Conservative measures otherwise for symptoms. Recheck with your PCM in 2-3 days. Consider consult with ophthalmology. Return to the ED with any worsening/concerning symptoms otherwise as reviewed in discharge. Patient is in agreement. - Vital Signs Vital signs: Temp Pulse Resp BP Pulse Ox 98.7 F 88 14 111/64 100 03/04/18 08:06 03/04/18 08:06 03/04/18 08:06 03/04/18 08:06 03/04/18 08:06 Discharge - Discharge Clinical Impression: Acute URI Acute pharyngitis Qualifiers: Pharyngitis/tonsillitis etiology: unspecified etiology Qualified Code(s): J02.9 - Acute pharyngitis, unspecified Acute conjunctivitis, left eye Qualifiers: Acute conjunctivitis type: unspecified Qualified Code(s): H10.32 - Unspecified acute conjunctivitis, left eye Condition: Stable Disposition: HOME, SELF-CARE Instructions: Sore Throat ([facility]), Upper Respiratory Illness ([facility]), Conjunctivitis ([facility]) Additional Instructions: keep eyes clean Avoid scratching/touching eyes Wash hands regularly Use eye drops as directed Maintain adequate fluid intake tylenol/ibuprofen as needed over the counter cold medication as needed for symptoms F/u: with your PCM in 3-5 days for a recheck Consider consult with Ophthalmology for ongoing/worsening symptoms Return to the ED with any worsening symptoms and/or development of fever, headache, changes in vision, eye pain, worsening eye redness, redness around the eyes, purulent discharge, sore throat, facial swelling, neck pain/stiffness , chest pain, palpitations, syncope, shortness of breath, trouble breathing, abdominal pain, n/v/d, blood in stool/urine, dysuria, or other worsening symptoms that are concerning to you. Prescriptions: Polymyxin B Sulf/Trimethoprim [Polytrim Eye Drops] 1 drop OD Q3H #10 ml Referrals: MADALYN JONES DO [ACTIVE STAFF] - Follow up as needed
[2018-03-04 09:23] VITALS: BP 112/45
== END 2018-03-04 09:23 | disposition home or self-care (01) ==
LOC: ER 08:02
DX: J02.9 Acute pharyngitis, unspecified (principal); J06.9 Acute upper respiratory infection, unspecified; H10.32 Unspecified acute conjunctivitis, left eye
CPT/HCPCS: 87070; 87880; 99283

== ENCOUNTER 2018-03-26 16:10 | Emergency (ER) | payer MEDICAID ==
--- NOTE | 2018-03-26 16:51 | EKG REPORT ---
SEVERITY:- NORMAL ECG - SINUS RHYTHM : Confirmed by: Mariano Parisi MD 26-Mar-2018 16:50:05
[2018-03-26 16:58] LABS: ABSOLUTE LYMPHOCYTES (AUTO) 1.8 10^3/uL (0.5-4.7); ABSOLUTE MONOCYTES (AUTO) 0.6 10^3/uL (0.1-1.4); ABSOLUTE NEUT (AUTO) 3.6 10^3/uL (1.7-8.2); BASOPHILS % (AUTO) 0.6 % (0-2); EOSINOPHILS % (AUTO) 0.5 % (0-6); HEMATOCRIT 35.4 % (36.0-47.0); HEMOGLOBIN 11.5 g/dL (12.0-15.5); LYMPHOCYTES % (AUTO) 30.4 % (13-45); MEAN CORPUSCULAR HEMOGLOBIN 25.8 pg (27.0-33.4); MEAN CORPUSCULAR HGB CONC 32.6 g/dL (32.0-36.0); MEAN CORPUSCULAR VOLUME 79 fl (80-97); MONOCYTES % (AUTO) 9.8 % (3-13); PLATELET COUNT 306 10^3/uL (150-450); RED BLOOD COUNT 4.48 10^6/uL (3.72-5.28); RED CELL DISTRIBUTION WIDTH 18.6 % (11.5-14.0); SEGMENTED NEUTROPHILS % (AUTO) 58.7 % (42-78); TOTAL CELLS COUNTED % (AUTO) 100 %; WHITE BLOOD COUNT 6.1 10^3/uL (4.0-10.5)
[2018-03-26 17:06] LABS: ALANINE AMINOTRANSFERASE 21 U/L (9-52); ALBUMIN 4.1 g/dL (3.5-5.0); ALKALINE PHOSPHATASE 54 U/L (38-126); ANION GAP 15 (5-19); ASPARTATE AMINO TRANSFERASE 19 U/L (14-36); BILIRUBIN,DIRECT 0.2 mg/dL (0.0-0.4); BILIRUBIN,TOTAL 0.2 mg/dL (0.2-1.3); BLOOD UREA NITROGEN 10 mg/dL (7-20); CALCIUM 9.6 mg/dL (8.4-10.2); CARBON DIOXIDE 22 mmol/L (22-30); CHLORIDE 106 mmol/L (98-107); GLUCOSE 83 mg/dL (75-110); SODIUM 143.2 mmol/L (137-145); TOTAL PROTEIN 7.3 g/dL (6.3-8.2)
[2018-03-26 17:08] LABS: ACETAMINOPHEN < 10 ug/mL (10-30); ALCOHOL < 10 mg/dL (NONE DETECTED); SALICYLATE < 1.0 mg/dL (2.0-20.0)
[2018-03-26 18:05] LABS: APPEARANCE,URINE CLEAR; BILIRUBIN,URINE NEGATIVE (NEGATIVE); COLOR,URINE YELLOW; GLUCOSE, URINE NEGATIVE (NEGATIVE); KETONES,URINE TRACE mg/dL (NEGATIVE); LEUKOCYTE ESTERASE,URINE NEGATIVE (NEGATIVE); NITRITE,URINE NEGATIVE (NEGATIVE); PROTEIN,URINE NEGATIVE (NEGATIVE); URINE SPECIFIC GRAVITY 1.024; UROBILINOGEN,URINE NEGATIVE mg/dL (<2.0)
[2018-03-26 18:18] LABS: URINE AMPHETAMINES SCREEN NEGATIVE; URINE BARBITURATES SCREEN NEGATIVE; URINE BENZODIAZEPINES SCREEN NEGATIVE; URINE COCAINE SCREEN NEGATIVE; URINE MARIJUANA (THC) SCREEN NEGATIVE; URINE METHADONE SCREEN NEGATIVE; URINE PHENCYCLIDINE SCREEN NEGATIVE
--- NOTE | 2018-03-26 21:54 | ER Document Report ---
ED Psych Disorder / Suicide - General Chief Complaint: Suicidal Ideation Stated Complaint: PSYCH EVAL/SUIDICAL IDEATION Time Seen by Provider: 03/26/18 16:38 Mode of Arrival: Ambulatory Information source: Patient Notes: This is a 22-year-old female with a history of PTSD and depression who presents to the emergency room with thoughts of wanting to kill herself. Patient states that her depression is been significantly worse since giving on January 18. She states that she has had multiple family members that have in the last year. She also states that the baby's father taken the baby away from her yesterday. She states she wants to kill herself. She is currently homeless. Medications: None Allergies: Seroquel, Thorazine, IV contrast, penicillin, epidural anesthesia TRAVEL OUTSIDE OF THE [place] IN LAST 30 DAYS: No - HPI Patient complains to provider of: Suicidal ideation Onset: Last week Onset was: Gradual Quality of pain: No pain Severity: None Pain Level: Denies Suicide Risk Factors: Depressed, Lack of social support, No spouse Situational problems related to: Recent , Other - Child Injury to: No: Generalized, Abdomen, Ankle, Back, Breast, Buttocks, Chest, Elbow , Epigastric, Flank, Face, Finger, Foot, Hand, Head, Hip, Knee, Leg, Lower extremity, Mouth, Neck, Pelvic, Penis, Perineum, Rectum, Shoulder, Testicle, Thigh, Throat, Trunk, Upper extremity, Vagina, Wrist Normal mood: No Associated symptoms: Decreased appetite, Depressed Similar symptoms previously: Yes Recently seen / treated by doctor: No - Related Data Allergies/Adverse Reactions: chlorpromazine HCl [From Thorazine] Allergy (Verified 09/15/17 19:56) Iodinated Contrast- Oral and IV Dye [IV Dye, Iodine Containing] Allergy ( Verified 09/15/17 19:56) nalbuphine HCl [From Nubain] Allergy (Verified 09/15/17 19:56) Penicillins Allergy (Verified 09/15/17 19:56) quetiapine fumarate [From Seroquel] Allergy (Verified 09/15/17 19:56) anesthesia in epidural Allergy (Uncoded 03/26/18 16:14) Past Medical History - General Information source: Patient - Social History Smoking Status: Unknown if Ever Smoked Cigarette use (# per day): No Chew tobacco use (# tins/day): No Frequency of alcohol use: None Drug Abuse: None Lives with: Homeless Family History: Reviewed & Not Pertinent Patient has suicidal ideation: Yes Patient has homicidal ideation: No Pulmonary Medical History: Reports: Hx Asthma Neurological Medical History: Reports: Hx Migraine, Hx Seizures Renal/ Medical History: Denies: Hx Peritoneal Dialysis Psychiatric Medical History: Reports: Hx Anxiety, Hx Bipolar Disorder, Hx Depression Surgical Hx: Negative - Immunizations Hx Diphtheria, Pertussis, Tetanus Vaccination: Yes Review of Systems - Review of Systems Constitutional: denies: Chills, Fever EENT: No symptoms reported Cardiovascular: No symptoms reported Respiratory: No symptoms reported Gastrointestinal: No symptoms reported Genitourinary: No symptoms reported Female Genitourinary: No symptoms reported Musculoskeletal: No symptoms reported Skin: No symptoms reported Hematologic/Lymphatic: No symptoms reported Neurological/Psychological: See HPI Physical Exam - Vital signs Vitals: Temp Pulse Resp BP Pulse Ox 98.7 F 120 H 20 124/72 100 03/26/18 16:18 03/26/18 16:18 03/26/18 16:18 03/26/18 16:18 03/26/18 16:18 Notes: Physical exam: GENERAL: 22-year-old female, alert and oriented 3, tearful and appears depressed HEAD: Atraumatic, normocephalic. EYES: Pupils equal round and reactive to light, extraocular movements intact, sclera anicteric, conjunctiva are normal. ENT: TMs normal, nares patent, oropharynx clear without exudates. Moist mucous membranes. NECK: Normal range of motion, supple without obvious mass or JVD. LUNGS: Breath sounds clear to auscultation bilaterally and equal. No wheezes rales or rhonchi. HEART: Regular rate and rhythm without murmurs, rubs or gallops. ABDOMEN: Soft, normoactive bowel sounds. No tenderness to palpation. No guarding, no rebound. No masses appreciated. EXTREMITIES: Normal range of motion, no pitting or edema. No clubbing or cyanosis. NEUROLOGICAL: Cranial nerves II through XII grossly intact. Normal speech, moving all extremities. PSYCH: depressed mood, endorses suicidal ideations. No evidence of hallucinations or delusions. SKIN: Warm, Dry, normal turgor, no rashes or lesions noted. Course - Re-evaluation Re-evalutation: 03/26/18 21:54 Patient is medically stable for psychiatric disposition or discharge. - Vital Signs Vital signs: Temp Pulse Resp BP Pulse Ox 98.5 F 100 16 123/74 100 03/26/18 19:05 03/26/18 19:05 03/26/18 19:05 03/26/18 19:05 03/26/18 19:05 - Laboratory Result Diagrams: 03/26/18 16:32 03/26/18 16:32 Laboratory results interpreted by me: 03/26/18 03/26/18 03/26/18 16:32 16:32 17:19 Hgb 11.5 L Hct 35.4 L MCV 79 L MCH 25.8 L RDW 18.6 H Urine Ketones TRACE H Urine Blood MODERATE H Salicylates < 1.0 L Acetaminophen < 10 L - EKG Interpretation by Me Rate: Normal Rhythm: NSR - EKG shows normal sinus rhythm with a ventricular rate of 91, Discharge - Discharge Clinical Impression: Depression, Suicidal Condition: Stable Disposition: PSYCH HOSP/UNIT
--- NOTE | 2018-03-27 10:05 | ER Document Report ---
Doctor's Note Notes: 03/27/18 10:04 Rounds: Chart reviewed and patient interviewed. Patient is depressed and expressing suicidal thoughts, although she says she feels less suicidal today than when she was admitted yesterday. She had a baby in January and the baby has been taken away and father has the baby now. Patient is also listed as being homeless. Lab studies were all normal. Vital signs were all normal. Patient appears to be medically stable for transfer or discharge. Sai Hein MD
[2018-03-27 15:40] VITALS: BP 129/78
== END 2018-03-27 15:40 | disposition home or self-care (01) ==
LOC: ER 16:10
DX: F32.9 Major depressive disorder, single episode, unspecified (principal); R45.851 Suicidal ideations; J45.909 Unspecified asthma, uncomplicated; Z59.0 Homelessness; Z88.8 Allergy status to other drugs, medicaments and biological substances; Z91.041 Radiographic dye allergy status; Z88.4 Allergy status to anesthetic agent; Z88.0 Allergy status to penicillin; Z88.5 Allergy status to narcotic agent
CPT/HCPCS: 36415; 80053; 80307; 81001; 84443; 84703; 85025; 93005; 93010; 99285

== ENCOUNTER 2019-06-30 08:17 | Emergency (ER) | payer SELFPAY ==
[2019-06-30 08:46] LABS: APPEARANCE,URINE CLEAR; BILIRUBIN,URINE NEGATIVE (NEGATIVE); COLOR,URINE YELLOW; GLUCOSE, URINE NEGATIVE (NEGATIVE); KETONES,URINE NEGATIVE (NEGATIVE); LEUKOCYTE ESTERASE,URINE TRACE (NEGATIVE); NITRITE,URINE NEGATIVE (NEGATIVE); PROTEIN,URINE NEGATIVE (NEGATIVE); URINE SPECIFIC GRAVITY 1.026; UROBILINOGEN,URINE NEGATIVE mg/dL (<2.0)
[2019-06-30] MEDS ORDERED: METOCLOPRAMIDE HCL 10 MG TABLET PO ONE (09:40)
--- NOTE | 2019-06-30 09:44 | ER Document Report ---
HPI - HPI Time Seen by Provider: 06/30/19 09:16 Pain Level: Denies Context: Patient is a 23-year-old female who presents the emergency department with a chief complaint complaint of nausea and breast swelling. She states that she is 19 days past 2 on her menstrual cycle. She has been receiving the double shot in the last time she had it was April 25. Patient is G possible 3 and P1. Patient states that her Medicaid is not fully active, that is why she came to the emergency department instead of going to her primary care provider. Patient also admits to having a positive faint line test at home. Denies any fever, dysuria, hematuria, or any other symptoms at this time. She denies any vomiting, but states that she feels like she is sometimes "spitting up." - CONSTITUTIONAL Constitutional: DENIES: Fever, Chills - EENT EENT: DENIES: Sore Throat, Nasal Drainage-Clear - NEURO Neurology: DENIES: Headache - CARDIOVASCULAR Cardiovascular: DENIES: Chest pain - RESPIRATORY Respiratory: DENIES: Trouble Breathing, Coughing - GASTROINTESTINAL Gastrointestinal: REPORTS: Nausea - MUSCULOSKELETAL Musculoskeletal: DENIES: Extremity pain - DERM Skin Color: Normal Skin Problems: None Past Medical History - Social History Smoking Status: Unknown if Ever Smoked Family History: Reviewed & Not Pertinent Pulmonary Medical History: Reports: Hx Asthma Neurological Medical History: Reports: Hx Migraine, Hx Seizures Renal/ Medical History: Denies: Hx Peritoneal Dialysis Psychiatric Medical History: Reports: Hx Anxiety, Hx Bipolar Disorder, Hx Depression - Immunizations Hx Diphtheria, Pertussis, Tetanus Vaccination: Yes Vertical Provider Document - CONSTITUTIONAL Agree With Documented VS: Yes Exam Limitations: No Limitations General Appearance: No Apparent Distress - INFECTION CONTROL TRAVEL OUTSIDE OF THE [place] IN LAST 30 DAYS: No - HEENT HEENT: Atraumatic, Normocephalic, PERRLA - NECK Neck: Normal Inspection - RESPIRATORY Respiratory: Breath Sounds Normal, No Respiratory Distress - CARDIOVASCULAR Cardiovascular: Regular Rate, Regular Rhythm Pulses: Normal: Radial - GI/ABDOMEN Gastrointestinal: Abdomen Soft, Abdomen Non-Tender - MUSCULOSKELETAL/EXTREMETIES Musculoskeletal/Extremeties: FROM - NEURO Level of Consciousness: Awake, Alert, Appropriate Motor/Sensory: No Motor Deficit, No Sensory Deficit - DERM Integumentary: Warm, Dry, No Rash Course - Re-evaluation Re-evalutation: Patient's urinalysis is unremarkable. Her urine hCG is negative. We will send for serum hCG. Serum hCG is negative. Patient states that she feels better than she knows she is not . I educated the patient on using condoms if she is worried about getting . She will follow-up with her primary care provider. Follow-up precautions were given. Verbal discharge instructions were given to the patient. They verbalized understanding. They are stable for discharge. - Vital Signs Vital signs: Temp Pulse Resp BP Pulse Ox 97.9 F 117 H 16 143/78 H 97 06/30/19 08:21 06/30/19 08:21 06/30/19 08:21 06/30/19 08:21 06/30/19 08:21 - Laboratory Laboratory results interpreted by me: 06/30/19 08:25 Ur Leukocyte Esterase TRACE H Discharge - Discharge Clinical Impression: Breast tenderness in female, Positive home test Condition: Stable Disposition: HOME, SELF-CARE Additional Instructions: You were seen today in the emergency department for breast tenderness and a positive test at home. Her blood drawn here in the hospital shows that you are not . Please follow-up with your primary care provider in regards to this visit. Forms: Return to Work
[2019-06-30 11:22] VITALS: BP 113/69
== END 2019-06-30 11:21 | disposition home or self-care (01) ==
LOC: ER 08:17
DX: Z32.01 Encounter for pregnancy test, result positive (principal); N64.4 Mastodynia; R11.0 Nausea; N63.0 Unspecified lump in unspecified breast
CPT/HCPCS: 36415; 81001; 81025; 84702; 99283

== ENCOUNTER 2019-07-20 20:19 | Emergency (ER) | payer SELFPAY ==
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
[2019-07-20 21:48] LABS: ABSOLUTE LYMPHOCYTES (AUTO) 1.4 10^3/uL (0.5-4.7); ABSOLUTE MONOCYTES (AUTO) 0.5 10^3/uL (0.1-1.4); ABSOLUTE NEUT (AUTO) 4.4 10^3/uL (1.7-8.2); BASOPHILS % (AUTO) 0.6 % (0-2); EOSINOPHILS % (AUTO) 0.5 % (0-6); HEMATOCRIT 39.2 % (36.0-47.0); HEMOGLOBIN 13.4 g/dL (12.0-15.5); LYMPHOCYTES % (AUTO) 21.6 % (13-45); MEAN CORPUSCULAR HEMOGLOBIN 30.4 pg (27.0-33.4); MEAN CORPUSCULAR HGB CONC 34.1 g/dL (32.0-36.0); MEAN CORPUSCULAR VOLUME 89 fl (80-97); MONOCYTES % (AUTO) 8.3 % (3-13); PLATELET COUNT 251 10^3/uL (150-450); RED BLOOD COUNT 4.41 10^6/uL (3.72-5.28); RED CELL DISTRIBUTION WIDTH 13.2 % (11.5-14.0); TOTAL CELLS COUNTED % (AUTO) 100 %; WHITE BLOOD COUNT 6.4 10^3/uL (4.0-10.5)
[2019-07-20 22:08] LABS: ALBUMIN 4.2 g/dL (3.5-5.0); ALKALINE PHOSPHATASE 48 U/L (38-126); ANION GAP 6 (5-19); ASPARTATE AMINO TRANSFERASE 20 U/L (14-36); BILIRUBIN,DIRECT 0.1 mg/dL (0.0-0.4); BILIRUBIN,TOTAL 0.2 mg/dL (0.2-1.3); BLOOD UREA NITROGEN 8 mg/dL (7-20); CALCIUM 9.8 mg/dL (8.4-10.2); CARBON DIOXIDE 26 mmol/L (22-30); CHLORIDE 106 mmol/L (98-107); GLUCOSE 93 mg/dL (75-110); POTASSIUM 4.4 mmol/L (3.6-5.0)
== END 2019-07-20 23:50 | disposition left against medical advice (07) ==
LOC: ER 20:19
DX: H57.12 Ocular pain, left eye (principal); H53.8 Other visual disturbances; J45.909 Unspecified asthma, uncomplicated; Z88.8 Allergy status to other drugs, medicaments and biological substances; Z91.041 Radiographic dye allergy status; Z88.5 Allergy status to narcotic agent; Z88.0 Allergy status to penicillin; Z88.4 Allergy status to anesthetic agent; Z53.20 Procedure and treatment not carried out because of patient's decision for unspecified reasons
CPT/HCPCS: 36415; 80053; 85025; 99281

== ENCOUNTER 2019-08-31 00:54 | Emergency (ER) | payer SELFPAY ==
[2019-08-31] MEDS ORDERED: PROMETHAZINE HCL 25 MG TABLET PO ONE (02:18)
[2019-08-31] MEDS ORDERED: OXYCODONE-ACETAMINOPHEN 5-325 MG TABLET PO ONE (02:18)
--- NOTE | 2019-08-31 02:19 | ER Document Report ---
ED GI/ - General Chief Complaint: Flank Pain Stated Complaint: FEVER,ABDOMINAL PAIN Time Seen by Provider: 08/31/19 02:05 Primary Care Provider: SITA GAY MD [ACTIVE STAFF] - Follow up as needed Notes: Patient is a 24-year-old female that comes to the emergency department for chief complaint of bilateral flank pain and painful urination. She states she started having urinary symptoms about 4 days ago but this has progressed and now she started getting flank pain and nausea, she vomited yesterday. She reports chills but does not have recorded fevers. She denies history of kidney stones but states she has had kidney infections several times in the past. She denies vaginal bleeding or discharge. She denies any current medications or any surgical history. TRAVEL OUTSIDE OF THE [place] IN LAST 30 DAYS: No - Related Data Allergies/Adverse Reactions: chlorpromazine HCl [From Thorazine] Allergy (Verified 09/15/17 19:56) Iodinated Contrast Media [IV Dye, Iodine Containing] Allergy (Verified 09/15/17 19:56) nalbuphine HCl [From Nubain] Allergy (Verified 09/15/17 19:56) Penicillins Allergy (Verified 09/15/17 19:56) quetiapine fumarate [From Seroquel] Allergy (Verified 09/15/17 19:56) anesthesia in epidural Allergy (Uncoded 03/26/18 16:14) Home Medications: multi vitamin Past Medical History - General Information source: Patient - Social History Smoking Status: Never Smoker Frequency of alcohol use: Rare Drug Abuse: None Lives with: Family Family History: Reviewed & Not Pertinent Patient has suicidal ideation: No Patient has homicidal ideation: No Pulmonary Medical History: Reports: Hx Asthma Neurological Medical History: Reports: Hx Migraine, Hx Seizures Renal/ Medical History: Denies: Hx Peritoneal Dialysis Psychiatric Medical History: Reports: Hx Anxiety, Hx Bipolar Disorder, Hx Depression - Immunizations Hx Diphtheria, Pertussis, Tetanus Vaccination: Yes Review of Systems - Review of Systems Constitutional: See HPI EENT: No symptoms reported Cardiovascular: No symptoms reported Respiratory: No symptoms reported Gastrointestinal: See HPI Genitourinary: See HPI Female Genitourinary: No symptoms reported Musculoskeletal: See HPI Skin: No symptoms reported Hematologic/Lymphatic: No symptoms reported Neurological/Psychological: No symptoms reported Physical Exam - Vital signs Vitals: Temp Pulse Resp BP Pulse Ox 99.6 F 130 H 18 117/67 98 08/31/19 01:12 08/31/19 01:12 08/31/19 01:12 08/31/19 01:12 08/31/19 01:12 - Notes Notes: GENERAL: Alert, interacts well. No acute distress. HEAD: Normocephalic, atraumatic. EYES: Pupils equal, round, and reactive to light. Extraocular movements intact. ENT: Oral mucosa moist, tongue midline. Oropharynx unremarkable. Airway patent. NECK: Full range of motion. Supple. Trachea midline. LUNGS: Clear to auscultation bilaterally, no wheezes, rales, or rhonchi. No respiratory distress. HEART: Regular rate and rhythm. No murmur ABDOMEN: Soft, non-tender. Non-distended. Bowel sounds present in all 4 quadrants. GENITOURINARY: Deferred EXTREMITIES: Moves all 4 extremities spontaneously. No edema, normal radial and dorsalis pedis pulses bilaterally. No cyanosis. BACK: No CVA tenderness. Very minimal tenderness of the paralumbar musculature bilaterally. No cervical, thoracic, lumbar midline tenderness. No saddle anesthesia, normal distal neurovascular exam. Moves all extremities in full range of motion. NEUROLOGICAL: Alert and oriented x3. Normal speech. Cranial nerves II through XII grossly intact. PSYCH: Normal affect, normal mood. SKIN: Warm, dry, normal turgor. No rashes or lesions noted. Course - Re-evaluation Re-evalutation: Patient is alert, conversational, well-appearing. She has some mild lower back pain on exam but no CVA tenderness. Soft benign abdomen. She is not tachycardic on my exam, this was rechecked and her heart rate is now normal. With her bilateral symptoms, dysuria progressing to worsening symptoms over days, I have a low suspicion of infected ureterolithiasis. Urine shows mild infection, culture placed, started on Keflex. CBC unremarkable. Chemistry surprising with low bicarbonate at 18, low potassium at 3.1, low magnesium at 1.5, and low calcium (along with low albumin) at 6.9. Discussed with Dr. Lewis. She recommends towards all be repleted with doses here, EKG rechecked, if EKG is normal patient can follow-up and have these rechecked with primary care closely for additional management. Given lactated Ringer's, p.o. potassium, IV calcium, IV magnesium. On reevaluation patient asymptomatic. EKG obtained and unremarkable. Discussed findings with patient, discussed treatment, close follow-up, and return precautions. Patient states understanding and agreement with plan. Stable time of discharge. - Vital Signs Vital signs: Temp Pulse Resp BP Pulse Ox 97.8 F 99 18 115/52 L 100 08/31/19 06:50 08/31/19 06:50 08/31/19 01:56 08/31/19 06:50 08/31/19 06:50 - Laboratory Result Diagrams: 08/31/19 02:21 08/31/19 02:21 Laboratory results interpreted by me: 08/31/19 08/31/19 08/31/19 02:21 02:21 02:21 Lymph % (Auto) 7.6 L Seg Neutrophils % 84.8 H Potassium 3.1 L Chloride 115 H Carbon Dioxide 18 L Calcium 6.9 L* Magnesium Total Protein 5.5 L Albumin 2.9 L Ur Leukocyte Esterase SMALL H 08/31/19 02:21 Lymph % (Auto) Seg Neutrophils % Potassium Chloride Carbon Dioxide Calcium Magnesium 1.5 L Total Protein Albumin Ur Leukocyte Esterase - EKG Interpretation by Me Additional EKG results interpreted by me: EKG shows sinus rhythm at a rate of 81, QTC of 432, normal axis, no T wave inversions or ST segment changes in consecutive leads, machine reads as normal. Discharge - Discharge Clinical Impression: Flank pain, Hypomagnesemia, Hypokalemia, Hypocalcemia Urinary tract infection Qualifiers: Urinary tract infection type: site unspecified Hematuria presence: without hematuria Qualified Code(s): N39.0 - Urinary tract infection, site not specified Disposition: HOME, SELF-CARE Additional Instructions: You had been diagnosed with a urinary tract infection. Please take the antibiotics as prescribed to completion. Take the nausea medication as prescr ibed as well. As part of your care for the kidney infection you were given oxycodone tonight. Your electrolytes were very abnormal today, you were given magnesium, calcium, and potassium. You were also given IV fluids to rehydrate you. Please follow- up with the primary care provider referral listed closely for a recheck and additional management of your electrolytes. Return if you worsen including return severe back pain or muscle cramps, vomiting that is not controlled, spiking fever, or any other concerning or worsening symptoms. Prescriptions: Cephalexin Monohydrate [Keflex 500 mg Capsule] 500 mg PO BID 7 Days #14 capsule Promethazine HCl [Phenergan 25 mg Tablet] 25 mg PO Q6H PRN #15 tablet PRN Reason: Forms: Return to Work Referrals: SITA GAY MD [ACTIVE STAFF] - Follow up as needed
[2019-08-31 02:45] LABS: ABSOLUTE LYMPHOCYTES (AUTO) 0.7 10^3/uL (0.5-4.7); ABSOLUTE MONOCYTES (AUTO) 0.7 10^3/uL (0.1-1.4); BASOPHILS % (AUTO) 0.3 % (0-2); HEMATOCRIT 40.3 % (36.0-47.0); HEMOGLOBIN 13.8 g/dL (12.0-15.5); LYMPHOCYTES % (AUTO) 7.6 % (13-45); MEAN CORPUSCULAR HEMOGLOBIN 30.2 pg (27.0-33.4); MEAN CORPUSCULAR HGB CONC 34.3 g/dL (32.0-36.0); MEAN CORPUSCULAR VOLUME 88 fl (80-97); MONOCYTES % (AUTO) 7.3 % (3-13); PLATELET COUNT 176 10^3/uL (150-450); RED BLOOD COUNT 4.58 10^6/uL (3.72-5.28); RED CELL DISTRIBUTION WIDTH 13.2 % (11.5-14.0); SEGMENTED NEUTROPHILS % (AUTO) 84.8 % (42-78); TOTAL CELLS COUNTED % (AUTO) 100 %; WHITE BLOOD COUNT 9.4 10^3/uL (4.0-10.5)
[2019-08-31 02:51] LABS: APPEARANCE,URINE CLEAR; BILIRUBIN,URINE NEGATIVE (NEGATIVE); COLOR,URINE YELLOW; GLUCOSE, URINE NEGATIVE (NEGATIVE); KETONES,URINE NEGATIVE (NEGATIVE); LEUKOCYTE ESTERASE,URINE SMALL (NEGATIVE); NITRITE,URINE NEGATIVE (NEGATIVE); PROTEIN,URINE NEGATIVE (NEGATIVE); URINE SPECIFIC GRAVITY 1.011; UROBILINOGEN,URINE NEGATIVE mg/dL (<2.0)
[2019-08-31 02:57] LABS: ALBUMIN 2.9 g/dL (3.5-5.0); ALKALINE PHOSPHATASE 47 U/L (38-126); ANION GAP 6 (5-19); ASPARTATE AMINO TRANSFERASE 23 U/L (14-36); BILIRUBIN,TOTAL 0.3 mg/dL (0.2-1.3); BLOOD UREA NITROGEN 7 mg/dL (7-20); CARBON DIOXIDE 18 mmol/L (22-30); CHLORIDE 115 mmol/L (98-107); GLUCOSE 77 mg/dL (75-110); POTASSIUM 3.1 mmol/L (3.6-5.0); TOTAL PROTEIN 5.5 g/dL (6.3-8.2)
[2019-08-31 03:06] LABS: CALCIUM 6.9 mg/dL (8.4-10.2)
[2019-08-31] MEDS ORDERED: CEPHALEXIN 500 MG CAPSULE PO ONE (04:22)
[2019-08-31] MEDS ORDERED: CALCIUM GLUCONATE 1000 MG/10 ML INJ IV ONE ×2 (04:34→04:35)
[2019-08-31] MEDS ORDERED: RINGERS SOLUTION,LACTATED 1,000 ML IV ONE (04:35)
[2019-08-31] MEDS ORDERED: POTASSIUM CHLORIDE 10 MEQ CAPSULE.ER PO ONE (04:39)
[2019-08-31] MEDS: MAGNESIUM SULFATE/D5W 1 GM/100 ML RTUPB IV SCH ×2 (05:45→06:48)
[2019-08-31 06:54] VITALS: BP 115/52
--- NOTE | 2019-08-31 07:20 | EKG REPORT ---
SEVERITY:- NORMAL ECG - SINUS RHYTHM : Confirmed by: Mariano Parisi MD 31-Aug-2019 07:19:28
== END 2019-08-31 07:07 | disposition home or self-care (01) ==
LOC: ER 00:54
DX: N39.0 Urinary tract infection, site not specified (principal); E83.42 Hypomagnesemia; E83.51 Hypocalcemia; E87.6 Hypokalemia; R10.9 Unspecified abdominal pain; R11.2 Nausea with vomiting, unspecified; Z87.442 Personal history of urinary calculi; Z79.899 Other long term (current) drug therapy; Z88.8 Allergy status to other drugs, medicaments and biological substances; Z91.041 Radiographic dye allergy status; Z88.5 Allergy status to narcotic agent; Z88.6 Allergy status to analgesic agent; Z88.0 Allergy status to penicillin; Z88.4 Allergy status to anesthetic agent
CPT/HCPCS: 93005; 36415; 83735; 85025; 81025; 80053; 81001; 93010; J0610; J3475; J7120; 87086; 96365; 96375; 99284

== ENCOUNTER 2019-09-12 00:43 | Emergency (ER) | payer SELFPAY ==
[2019-09-12] MEDS ORDERED: OXYCODONE-ACETAMINOPHEN 5-325 MG TABLET PO ONE (05:03)
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
[2019-09-12 06:47] VITALS: BP 116/68
== END 2019-09-12 06:47 | disposition home or self-care (01) ==
LOC: ER 00:43
DX: S09.90XA Unspecified injury of head, initial encounter (principal); S20.229A Contusion of unspecified back wall of thorax, initial encounter; S10.93XA Contusion of unspecified part of neck, initial encounter; S00.83XA Contusion of other part of head, initial encounter; Y04.2XXA Assault by strike against or bumped into by another person, initial encounter; Z88.0 Allergy status to penicillin
CPT/HCPCS: 70450; 70486; 72125; 99284

== ENCOUNTER 2019-10-18 22:56 | Emergency (ER) | payer SELFPAY ==
[2019-10-18 23:41] LABS: APPEARANCE,URINE CLEAR; BILIRUBIN,URINE NEGATIVE (NEGATIVE); COLOR,URINE YELLOW; GLUCOSE, URINE NEGATIVE (NEGATIVE); KETONES,URINE NEGATIVE (NEGATIVE); LEUKOCYTE ESTERASE,URINE TRACE (NEGATIVE); NITRITE,URINE NEGATIVE (NEGATIVE); PROTEIN,URINE NEGATIVE (NEGATIVE); URINE SPECIFIC GRAVITY 1.017; UROBILINOGEN,URINE NEGATIVE mg/dL (<2.0)
--- NOTE | 2019-10-18 23:45 | ER Document Report ---
ED Medical Screen (RME) - General Chief Complaint: Constipation Stated Complaint: CONSTIPATION,POSSIBLE UTI Time Seen by Provider: 10/18/19 23:42 Notes: Patient is a 24-year-old female who presents to the emergency department with a chief complaint of constipation and possible UTI. Patient reports she has been constipated for about 4 weeks. Patient reports her last bowel movement was 3 to 4 weeks ago. Patient reports she is attempted to take the laxatives without relief but does feels like she has bubble guts. Patient also reports bilateral flank pain and darker colored urine. Patient reports she has a history of really bad urinary tract infections and wanted to catch it before it got bad. Patient also reports loss of appetite. Patient reports that she is not currently and did receive her Depakote shot earlier today. Patient denies fever. Patient denies vomiting or diarrhea. TRAVEL OUTSIDE OF THE [place] IN LAST 30 DAYS: No - Related Data Allergies/Adverse Reactions: chlorpromazine HCl [From Thorazine] Allergy (Verified 09/15/17 19:56) Iodinated Contrast Media [IV Dye, Iodine Containing] Allergy (Verified 09/15/17 19:56) nalbuphine HCl [From Nubain] Allergy (Verified 09/15/17 19:56) Penicillins Allergy (Verified 09/15/17 19:56) quetiapine fumarate [From Seroquel] Allergy (Verified 09/15/17 19:56) anesthesia in epidural Allergy (Uncoded 03/26/18 16:14) Home Medications: Vitamins. Tylenol. Ibuprofen Past Medical History - Social History Chew tobacco use (# tins/day): No Frequency of alcohol use: Social Drug Abuse: None Pulmonary Medical History: Reports: Hx Asthma Neurological Medical History: Reports: Hx Migraine, Hx Seizures Renal/ Medical History: Denies: Hx Peritoneal Dialysis Psychiatric Medical History: Reports: Hx Anxiety, Hx Bipolar Disorder, Hx Depression - Immunizations Hx Diphtheria, Pertussis, Tetanus Vaccination: Yes Physical Exam - Vital signs Vitals: Temp Pulse Resp BP Pulse Ox 99.1 F 104 H 20 105/70 100 10/18/19 23:24 10/18/19 23:24 10/18/19 23:24 10/18/19 23:24 10/18/19 23:24 - Abdominal Inspection: Normal Distension: No distension Bowel sounds: Normal Tenderness: Nontender Organomegaly: No organomegaly Course - Re-evaluation Re-evalutation: 10/18/19 23:45 I have greeted and performed a rapid initial assessment of this patient. A comprehensive ED assessment and evaluation of the patient, analysis of test results and completion of the medical decision making process will be conducted by additional ED providers. - Vital Signs Vital signs: Temp Pulse Resp BP Pulse Ox 99.1 F 104 H 20 105/70 100 10/18/19 23:24 10/18/19 23:24 10/18/19 23:24 10/18/19 23:24 10/18/19 23:24 - Laboratory Laboratory results interpreted by me: 10/18/19 23:13 Ur Leukocyte Esterase TRACE H
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
[2019-10-19] MEDS ORDERED: ACETAMINOPHEN 325 MG TABLET PO ONE (02:25)
--- NOTE | 2019-10-19 03:48 | ER Document Report ---
ED GI/ - General Chief Complaint: Constipation Stated Complaint: CONSTIPATION,POSSIBLE UTI Time Seen by Provider: 10/18/19 23:42 Mode of Arrival: Ambulatory Information source: Patient Notes: 24-year-old woman presents to the emergency department with complaint of constipation and a possible urinary tract infection. She describes dysuria burning and frequency with associated constipation. She states she is used [id number] generic [employer] medication for constipation, it was a pill and did not work. She denies any active medical problems. TRAVEL OUTSIDE OF THE [place] IN LAST 30 DAYS: No - Related Data Allergies/Adverse Reactions: chlorpromazine HCl [From Thorazine] Allergy (Verified 09/15/17 19:56) Iodinated Contrast Media [IV Dye, Iodine Containing] Allergy (Verified 09/15/17 19:56) nalbuphine HCl [From Nubain] Allergy (Verified 09/15/17 19:56) Penicillins Allergy (Verified 09/15/17 19:56) quetiapine fumarate [From Seroquel] Allergy (Verified 09/15/17 19:56) anesthesia in epidural Allergy (Uncoded 03/26/18 16:14) Home Medications: Vitamins. Tylenol. Ibuprofen Past Medical History - Social History Smoking Status: Never Smoker Chew tobacco use (# tins/day): No Frequency of alcohol use: Social Drug Abuse: None Family History: Reviewed & Not Pertinent Patient has suicidal ideation: No Patient has homicidal ideation: No Pulmonary Medical History: Reports: Hx Asthma Neurological Medical History: Reports: Hx Migraine, Hx Seizures Renal/ Medical History: Denies: Hx Peritoneal Dialysis Psychiatric Medical History: Reports: Hx Anxiety, Hx Bipolar Disorder, Hx Depression - Immunizations Hx Diphtheria, Pertussis, Tetanus Vaccination: Yes Review of Systems - Review of Systems Notes: Constitutional: Negative for fever. HENT: Negative for sore throat. Eyes: Negative for visual changes. Cardiovascular: Negative for chest pain. Respiratory: Negative for shortness of breath. Gastrointestinal: + Constipation Genitourinary: + Dysuria. Musculoskeletal: Negative for back pain. Skin: Negative for rash. Neurological: Negative for headaches, weakness or numbness. 10 point ROS negative except as marked above and in HPI. Physical Exam - Vital signs Vitals: Temp Pulse Resp BP Pulse Ox 99.1 F 104 H 20 105/70 100 10/18/19 23:24 10/18/19 23:24 10/18/19 23:24 10/18/19 23:24 10/18/19 23:24 - Notes Notes: PHYSICAL EXAMINATION: Physical Exam: General: Well-nourished well-developed woman in no acute distress HEENT: NC/AT, pupils equal round and reactive to light, MM moist,nares clear, Neck: supple, no adenopathy, no masses. Lungs: clear, no wheezing, no rales no rhonchi CVS: Regular rate and rhythm no murmur gallop or rub Abdomen: Soft active nontender, no masses, no hepatosplenomegaly Ext: No edema clubbing or cyanosis. Neuro: Alert and responsive, moving all 4 extremities on command, cranial nerves intact. Skin: Intact no open lesions, no rash PSYCH: Normal mood, normal affect. Course - Vital Signs Vital signs: Temp Pulse Resp BP Pulse Ox 98.2 F 80 16 119/65 100 10/19/19 03:55 10/19/19 03:55 10/19/19 03:55 10/19/19 03:55 10/19/19 03:55 - Laboratory Laboratory results interpreted by me: 10/18/19 23:13 Ur Leukocyte Esterase TRACE H 10/19/19 05:31 I have reviewed laboratory data and used this information for the treatment decisions regarding the patient. - Diagnostic Test Radiology reviewed: Image reviewed, Reports reviewed - KUB x-ray: Large amount of stool in the colon. No obstruction Discharge - Discharge Clinical Impression: Constipation Qualifiers: Constipation type: unspecified constipation type Qualified Code(s): K59.00 - Constipation, unspecified UTI (urinary tract infection) Qualifiers: Urinary tract infection type: site unspecified Hematuria presence: without hematuria Qualified Code(s): N39.0 - Urinary tract infection, site not specified Condition: Good Disposition: HOME, SELF-CARE Instructions: Urinary Tract Infection ([facility]) Additional Instructions: Use milk of magnesia for constipation, 1 capful followed by 8 ounces of water, repeat in 4 hours if you have not had a good result. Please follow-up as needed with your primary care doctor. Prescriptions: Nitrofurantoin/Nitrofuran Mac [Macrobid 100 mg Capsule] 1 tab PO BID #20 capsule
[2019-10-19 03:56] VITALS: BP 119/65
== END 2019-10-19 03:55 | disposition home or self-care (01) ==
LOC: ER 22:56
DX: N39.0 Urinary tract infection, site not specified (principal); K59.00 Constipation, unspecified; Z79.899 Other long term (current) drug therapy; J45.909 Unspecified asthma, uncomplicated
CPT/HCPCS: 74018; 81001; 99283

== ENCOUNTER 2019-11-06 15:06 | Emergency (ER) | payer SELFPAY ==
--- NOTE | 2019-11-06 16:38 | ER Document Report ---
ED Medical Screen (RME) - General Chief Complaint: Hip Pain Stated Complaint: HIP PAIN Time Seen by Provider: 11/06/19 16:36 Notes: HPI: 24-year-old female presenting for left thigh discomfort and numbness with radiation of the numbness across the hip region down into the medial aspect of the thigh over the last 4 to 5 days. No incontinence of urine or bowel. Patient states it feels similar to when she had "blood clots" when she was pregn ant. She was never placed on blood thinners per the patient. She is concerned about a blood clot I have greeted and performed a rapid initial assessment of this patient. A comprehensive ED assessment and evaluation of the patient, analysis of test results and completion of the medical decision making process will be conducted by additional ED providers PHYSICAL EXAMINATION: GENERAL: Well-appearing, well-nourished and in no acute distress. HEAD: Atraumatic, normocephalic. EYES: sclera anicteric, conjunctiva are normal. ENT: Moist mucous membranes. NECK: Normal range of motion LUNGS: Normal work of breathing HEART: 2+ radial pulses bilaterally ABD: limited by positioning for exam in triage. EXTREMITIES: no pitting or edema. No cyanosis. Mild tenderness around the left hip girdle on palpation and with range of motion. NEUROLOGICAL: No focal neurological deficits. Moves all extremities spontaneously and on command. No saddle anesthesia PSYCH: Normal mood, normal affect. SKIN: Warm, Dry, normal turgor, no rashes or lesions noted. TRAVEL OUTSIDE OF THE [place] IN LAST 30 DAYS: No - Related Data Allergies/Adverse Reactions: chlorpromazine HCl [From Thorazine] Allergy (Verified 09/15/17 19:56) Iodinated Contrast Media [IV Dye, Iodine Containing] Allergy (Verified 09/15/17 19:56) nalbuphine HCl [From Nubain] Allergy (Verified 09/15/17 19:56) Penicillins Allergy (Verified 09/15/17 19:56) quetiapine fumarate [From Seroquel] Allergy (Verified 09/15/17 19:56) anesthesia in epidural Allergy (Uncoded 03/26/18 16:14) Past Medical History Pulmonary Medical History: Reports: Hx Asthma Neurological Medical History: Reports: Hx Migraine, Hx Seizures Renal/ Medical History: Denies: Hx Peritoneal Dialysis Psychiatric Medical History: Reports: Hx Anxiety, Hx Bipolar Disorder, Hx D epression - Immunizations Hx Diphtheria, Pertussis, Tetanus Vaccination: Yes Physical Exam - Vital signs Vitals: Temp Pulse Resp BP Pulse Ox 98.4 F 101 H 16 117/69 100 11/06/19 15:12 11/06/19 15:12 11/06/19 15:12 11/06/19 15:12 11/06/19 15:12 Course - Vital Signs Vital signs: Temp Pulse Resp BP Pulse Ox 98.4 F 101 H 16 117/69 100 11/06/19 15:12 11/06/19 15:12 11/06/19 15:12 11/06/19 15:12 11/06/19 15:12
--- NOTE | 2019-11-06 18:01 | ER Document Report ---
ED General - General Chief Complaint: Hip Pain Stated Complaint: HIP PAIN Time Seen by Provider: 11/06/19 16:36 Mode of Arrival: Ambulatory Information source: Patient TRAVEL OUTSIDE OF THE [place] IN LAST 30 DAYS: No - HPI Notes: Patient states that for 5 days she has had pain in her left thigh. She states it does radiate up and down the thigh on the left. It is worse with movement and better with rest. It has been constant and mild to moderate in intensity. She states is an aching sensation. She states it feels similar to when she had a blood clot in this leg approximately 3 years ago when she was . She states that the blood clot was not treated with any type of medication or procedure. She denies any swelling or rashes - Related Data Allergies/Adverse Reactions: chlorpromazine HCl [From Thorazine] Allergy (Verified 09/15/17 19:56) Iodinated Contrast Media [IV Dye, Iodine Containing] Allergy (Verified 09/15/17 19:56) nalbuphine HCl [From Nubain] Allergy (Verified 09/15/17 19:56) Penicillins Allergy (Verified 09/15/17 19:56) quetiapine fumarate [From Seroquel] Allergy (Verified 09/15/17 19:56) anesthesia in epidural Allergy (Uncoded 03/26/18 16:14) Past Medical History - General Information source: Patient - Social History Smoking Status: Never Smoker Frequency of alcohol use: None Drug Abuse: None Family History: Reviewed & Not Pertinent Patient has suicidal ideation: No Patient has homicidal ideation: No Pulmonary Medical History: Reports: Hx Asthma Neurological Medical History: Reports: Hx Migraine, Hx Seizures Renal/ Medical History: Denies: Hx Peritoneal Dialysis Psychiatric Medical History: Reports: Hx Anxiety, Hx Bipolar Disorder, Hx Depression - Immunizations Hx Diphtheria, Pertussis, Tetanus Vaccination: Yes Review of Systems - Review of Systems Constitutional: denies: Chills, Fever Cardiovascular: denies: Chest pain, Palpitations Respiratory: denies: Cough, Short of breath -: Yes All other systems reviewed and negative Physical Exam - Vital signs Vitals: Temp Pulse Resp BP Pulse Ox 98.4 F 101 H 16 117/69 100 11/06/19 15:12 11/06/19 15:12 11/06/19 15:12 11/06/19 15:12 11/06/19 15:12 Interpretation: Normal - General General appearance: Appears well, Alert - HEENT Head: Normocephalic, Atraumatic Eyes: Normal Pupils: PERRL - Respiratory Respiratory status: No respiratory distress Chest status: Nontender Breath sounds: Normal Chest palpation: Normal - Cardiovascular Rhythm: Regular Heart sounds: Normal auscultation Murmur: No - Abdominal Inspection: Normal Distension: No distension Bowel sounds: Normal Tenderness: Nontender Organomegaly: No organomegaly - Back Back: Normal, Nontender - Extremities General upper extremity: Normal inspection, Nontender, Normal color, Normal ROM, Normal temperature General lower extremity: Normal inspection, Nontender, Normal color, Normal ROM, Normal temperature, Normal weight bearing. No: Love's sign - Neurological Neuro grossly intact: Yes Cognition: Normal Orientation: AAOx4 [place] Coma Scale Eye Opening: Spontaneous Av Coma Scale Verbal: Oriented Av Coma Scale Motor: Obeys Commands Av Coma Scale Total: 15 Speech: Normal Motor strength normal: LUE, RUE, LLE, RLE Sensory: Normal - Psychological Associated symptoms: Normal affect, Normal mood - Skin Skin Temperature: Warm Skin Moisture: Dry Skin Color: Normal Course - Vital Signs Vital signs: Temp Pulse Resp BP Pulse Ox 98.4 F 101 H 16 117/69 100 11/06/19 15:12 11/06/19 15:12 11/06/19 15:12 11/06/19 15:12 11/06/19 15:12 - Diagnostic Test Radiology reviewed: Image reviewed, Reports reviewed Discharge - Discharge Clinical Impression: Acute pain of left thigh Condition: Stable Disposition: HOME, SELF-CARE Instructions: Myofascial Pain ([facility]) Prescriptions: Tramadol HCl [Ultram 50 mg Tablet] 50 mg PO Q6 PRN 3 Days #12 tab PRN Reason: Forms: Return to Work Referrals: [facility] [Provider Group] - Follow up in 3-5 days
--- NOTE | 2019-11-06 18:23 | RADIOLOGY REPORT (SQ) ---
EXAM DESCRIPTION: VENOUS UNILATERAL LOWER COMPLETED DATE/TIME: 11/06/2019 6:11 pm REASON FOR STUDY: LLE PAIN COMPARISON: None. TECHNIQUE: Dynamic and static erazo scale and color images acquired of the left leg venous system. Se lected spectral images acquired with additional compression and augmentation maneuvers. The contralat eral common femoral vein and saphenofemoral junction were also imaged. Images stored on PACS. LIMITATIONS: None. FINDINGS: COMMON FEMORAL: Normal phasicity, compression and augmentation. No visualized echogenic ma terial on erazo scale. No defects on color images. FEMORAL: Normal compression and augmentation. No visualized echogenic material on erazo scale. No defe cts on color images. POPLITEAL: Normal compression, augmentation. No visualized echogenic material on erazo scale. No defec ts on color images. CALF VESSELS: Normal compression, augmentation. No visualized echogenic material on erazo scale. No de fects on color images. GSV and SSV: Normal compression, augmentation. No visualized echogenic material on erazo scale. No def ects on color images. ANY DEEP VENOUS INSUFFICIENCY: No. ANY EVIDENCE OF POPLITEAL CYST: No. OTHER: No other finding. CONTRALATERAL COMMON FEMORAL VEIN AND SAPHENOFEMORAL JUNCTION: Normal phasicity, compression and augmentation. No visualized echogenic material on erazo scale. No de fects on color images. IMPRESSION: NO EVIDENCE OF DVT OR SVT IN THE LEFT LEG. TECHNICAL DOCUMENTATION: JOB ID: [id number] [employer]- All Rights Reserved Reading location - IP/workstation name: [email or web address]
[2019-11-06 18:39] VITALS: BP 124/86
== END 2019-11-06 18:28 | disposition home or self-care (01) ==
LOC: ER 15:06
DX: M79.652 Pain in left thigh (principal); M25.552 Pain in left hip; Z88.0 Allergy status to penicillin
CPT/HCPCS: 93971; 99283

== ENCOUNTER 2019-11-15 18:28 | Emergency (ER) | payer SELFPAY | END 2019-11-16 00:37 | disposition left against medical advice (07) | LOC: ER 18:28 | DX: Z53.21 Procedure and treatment not carried out due to patient leaving prior to being seen by health care provider (principal); S09.90XA Unspecified injury of head, initial encounter; X58.XXXA Exposure to other specified factors, initial encounter ==

== ENCOUNTER 2019-12-30 21:08 | Emergency (ER) | payer SELFPAY ==
[2019-12-30] MEDS ORDERED: DIPH/PERTUSS(ACELL)/TETANUS VAC/PF 0.5 ML SYR (>=10YO) IM ONE (21:19)
--- NOTE | 2019-12-30 21:19 | ER Document Report ---
ED Medical Screen (RME) - General Chief Complaint: Toe Injury Stated Complaint: TOE INJURY Time Seen by Provider: 12/30/19 21:17 Mode of Arrival: Ambulatory Information source: Patient Notes: 24-year-old female presented to ED for an injury to the right second toe. She states she slid her foot under the car seat in front of her and cut her toe on the mechanism the left the states slight up-and-down. Patient is alert oriented respirations regular nonlabored speaking in full sentences. She states her tetanus shot is not up-to-date. Will order a tetanus shot and an x-ray and have her seen by another provider. I have greeted and performed a rapid initial assessment of this patient. A comprehensive ED assessment and evaluation of the patient, analysis of test results and completion of medical decision making process will be conducted by an additional ED providers. TRAVEL OUTSIDE OF THE [place] IN LAST 30 DAYS: No - Related Data Allergies/Adverse Reactions: chlorpromazine HCl [From Thorazine] Allergy (Verified 09/15/17 19:56) Iodinated Contrast Media [IV Dye, Iodine Containing] Allergy (Verified 09/15/17 19:56) nalbuphine HCl [From Nubain] Allergy (Verified 09/15/17 19:56) Penicillins Allergy (Verified 09/15/17 19:56) quetiapine fumarate [From Seroquel] Allergy (Verified 09/15/17 19:56) anesthesia in epidural Allergy (Uncoded 03/26/18 16:14) Past Medical History Pulmonary Medical History: Reports: Hx Asthma Neurological Medical History: Reports: Hx Migraine, Hx Seizures Renal/ Medical History: Denies: Hx Peritoneal Dialysis Psychiatric Medical History: Reports: Hx Anxiety, Hx Bipolar Disorder, Hx Depression - Immunizations Hx Diphtheria, Pertussis, Tetanus Vaccination: Yes Physical Exam - Vital signs Vitals: Temp Pulse Resp BP Pulse Ox 98.3 F 98 20 121/75 100 12/30/19 21:11 12/30/19 21:11 12/30/19 21:11 12/30/19 21:11 12/30/19 21:11 Course - Vital Signs Vital signs: Temp Pulse Resp BP Pulse Ox 98.3 F 98 20 121/75 100 12/30/19 21:11 12/30/19 21:11 12/30/19 21:11 12/30/19 21:11 12/30/19 21:11
--- NOTE | 2019-12-30 22:06 | RADIOLOGY REPORT (SQ) ---
EXAM DESCRIPTION: XR TOES 2 OR MORE VIEWS COMPLETED DATE/TME: 12/30/2019 21:19 CLINICAL HISTORY: 24 years, Female, Pain injury right second toe COMPARISON: None. NUMBER OF VIEWS: 3 TECHNIQUE: 3 views of the right second toe LIMITATIONS: None. FINDINGS: Negative for fracture or dislocation. Joint spaces are preserved. Mild soft tissue swelling IMPRESSION: No acute fracture copyright 2010 [employer]- All Rights Reserved
--- NOTE | 2019-12-30 22:42 | ER Document Report ---
ED Extremity Problem, Lower - General Chief Complaint: Toe Injury Stated Complaint: TOE INJURY Time Seen by Provider: 12/30/19 21:17 Mode of Arrival: Ambulatory Information source: Patient Notes: This 24-year-old woman presents to the emergency department with a injury to her right second toe. She was in the backseat of a vehicle and apparently adjusting her foot the right second toe was injured on metal object under the seat. She sustained a laceration to the dorsal aspect of the second phalanx of the toe. She denies any other associated injuries. TRAVEL OUTSIDE OF THE [place] IN LAST 30 DAYS: No - Related Data Allergies/Adverse Reactions: chlorpromazine HCl [From Thorazine] Allergy (Verified 09/15/17 19:56) Iodinated Contrast Media [IV Dye, Iodine Containing] Allergy (Verified 09/15/17 19:56) nalbuphine HCl [From Nubain] Allergy (Verified 09/15/17 19:56) Penicillins Allergy (Verified 09/15/17 19:56) quetiapine fumarate [From Seroquel] Allergy (Verified 09/15/17 19:56) anesthesia in epidural Allergy (Uncoded 03/26/18 16:14) Past Medical History - General Information source: Patient - Social History Smoking Status: Never Smoker Chew tobacco use (# tins/day): No Frequency of alcohol use: None Drug Abuse: None Family History: Reviewed & Not Pertinent Patient has suicidal ideation: No Patient has homicidal ideation: No Pulmonary Medical History: Reports: Hx Asthma Neurological Medical History: Reports: Hx Migraine, Hx Seizures Renal/ Medical History: Denies: Hx Peritoneal Dialysis Psychiatric Medical History: Reports: Hx Anxiety, Hx Bipolar Disorder, Hx Depression - Immunizations Hx Diphtheria, Pertussis, Tetanus Vaccination: Yes Review of Systems - Review of Systems Notes: Constitutional: Negative for fever. HENT: Negative for sore throat. Eyes: Negative for visual changes. Cardiovascular: Negative for chest pain. Respiratory: Negative for shortness of breath. Gastrointestinal: Negative for abdominal pain, vomiting or diarrhea. Genitourinary: Negative for dysuria. Musculoskeletal: + Right second digit laceration, Skin: Negative for rash. Neurological: Negative for headaches, weakness or numbness. 10 point ROS negative except as marked above and in HPI. Physical Exam - Vital signs Vitals: Temp Pulse Resp BP Pulse Ox 98.3 F 98 20 121/75 100 12/30/19 21:11 12/30/19 21:11 12/30/19 21:11 12/30/19 21:11 12/30/19 21:11 - Notes Notes: PHYSICAL EXAMINATION: Physical Exam: General: Well-nourished well-developed 24-year-old female in no acute distress HEENT: NC/AT, pupils equal round and reactive to light, MM moist,nares clear, oropharynx clear, airway patent Neck: supple, no adenopathy, no masses. Good range of motion Lungs: clear, no wheezing, no rales no rhonchi CVS: Regular rate and rhythm no murmur gallop or rub Abdomen: Soft, active, nontender, no masses, no hepatosplenomegaly Ext: 1.5 cm laceration on the dorsal aspect of the right second toe, good range of motion, neurovascular intact Neuro: Alert and responsive, moving all 4 extremities on command, cranial nerves intact, no focal findings Skin: Intact no open lesions, no rash PSYCH: Normal mood, normal affect. Course - Re-evaluation Re-evalutation: 12/30/19 22:39 An x-ray was performed which reveals no bony injury, patient was given a tetanus booster, laceration was repaired with Dermabond, Band-Aid applied, and the patient will follow-up with her primary physician as needed. - Vital Signs Vital signs: Temp Pulse Resp BP Pulse Ox 98.3 F 98 20 121/75 100 12/30/19 21:11 12/30/19 21:11 12/30/19 21:11 12/30/19 21:11 12/30/19 21:11 - Diagnostic Test Radiology reviewed: Image reviewed, Reports reviewed - X-ray right foot: No fracture or dislocation noted right second toe. Procedures - Laceration/Wound Repair Right Toe Time completed: 22:50 Wound length (cm): 1.5 Wound's Depth, Shape: Superficial, Linear Laceration pre-procedure: Other - Saline/alcohol wipe Wound explored: Clean Wound Repaired With: Dermabond Post-procedure NV exam normal: Yes Complications: No Discharge - Discharge Clinical Impression: Laceration of second toe, right Qualifiers: Encounter type: initial encounter Qualified Code(s): S91.114A - Laceration without foreign body of right lesser toe(s) without damage to nail, initial encounter Condition: Good Disposition: HOME, SELF-CARE Instructions: Laceration Care ([facility]) Additional Instructions: The laceration on your right left toe was repaired with Dermabond. Do not apply ointment to the area of the repair, you may change the Band-Aid daily. Wear open toed shoes and follow-up with your doctor as needed. If you have concerns or difficulties related to the injury you may return to the emergency department for recheck as needed. HOME CARE INSTRUCTIONS & INFORMATION: Thank you for choosing us for your medical needs. We hope you're satisfied with the care you received. After you leave, you must properly care for your problem and, at the same time, observe its progress. Any condition can change. Some illnesses can change rapidly over hours or days. If your condition worsens, return to the Emergency Department or see your physician promptly. ABOUT YOUR X-RAYS AND EKG'S: If you had an EKG or X-rays taken, they have been read by the Emergency Physician. The X-rays and EKG's will also be read by a Radiologist or Assistant Professor Of Anthropology within 24 hours. If discrepancies are noted, you will be notified by telephone. Please be certain the ED has a correct telephone number & address where you can be reached. Also, realize that some fractures or abnormalities do not show up on initial X-rays. If your symptoms continue, see your physician. ABOUT YOUR LABORATORY TEST: If you had laboratory tests, the results have been reviewed by the Emergency Physician. Some test results (for example cultures) may not be available for several days. You will be contacted if any test result shows you need additional treatment. Please be certain the ED has a correct telephone number and address where you can be reached. ABOUT YOUR MEDICATIONS: You will receive instructions on how to take your medicine on the prescription label you receive. Additional information may be provided by the Pharmacy. If you have questions afterwards, call the ED for clarification or further instructions. Some prescribed medications may cause drowsiness. Do not perform tasks such as driving a car or operating machinery without consulting your Pharmacist. If you feel you need a refill of pain medication, your condition will need re-evaluation. Please do not call for a refill of any medication. ABOUT YOUR SIGNATURE: Signature of this document acknowledges to followin. Understanding that you received emergency treatment and that you may be released before al medical problems are known or treated. Please be certain the ED has a correct phone number & address where you can be reached. 2. Acknowledgement that you will arrange for follow-up care as recommended. 3. Authorization for the Emergency Physician to provide information to your follow-up Physician in order to maximize your care. AT ANY TIME, IF YOUR SYMPTOMS CHANGE SIGNIFICANTLY OR WORSEN OR YOU DEVELOP NEW SYMPTOMS, RETURN TO THE EMERGENCY DEPARTMENT IMMEDIATELY FOR RE-EVALUATION. OUR GOAL IS TO PROVIDE EXCELLENT MEDICAL CARE! WE HOPE THAT WE HAVE MET YOUR EXPECTATIONS DURING YOUR EMERGENCY DEPARTMENT VISIT AND THAT YOU FEEL YOU HAVE RECEIVED EXCELLENT CARE!
[2019-12-30 22:54] VITALS: BP 122/78
== END 2019-12-30 23:03 | disposition home or self-care (01) ==
LOC: ER 21:08
DX: S91.114A Laceration without foreign body of right lesser toe(s) without damage to nail, initial encounter (principal); W22.8XXA Striking against or struck by other objects, initial encounter; Y93.89 Activity, other specified; Y92.810 Car as the place of occurrence of the external cause; J45.909 Unspecified asthma, uncomplicated; Z23 Encounter for immunization; Z88.8 Allergy status to other drugs, medicaments and biological substances; Z91.041 Radiographic dye allergy status; Z88.0 Allergy status to penicillin; Z88.4 Allergy status to anesthetic agent; Z88.6 Allergy status to analgesic agent; Z88.5 Allergy status to narcotic agent
CPT/HCPCS: 90471; 90715; 99283

== ENCOUNTER 2020-01-30 11:58 | Emergency (ER) | payer SELFPAY ==
[2020-01-30] MEDS ORDERED: KETOROLAC TROMETHAMINE INJ/PF 30 MG/1 ML SDV IV ONE (12:12)
[2020-01-30] MEDS ORDERED: NORMAL SALINE 1000 ML 1,000 ML IV ONE (12:12)
--- NOTE | 2020-01-30 12:22 | ER Document Report ---
ED GI/ - General Chief Complaint: Flank Pain Stated Complaint: POSSIBLE UTI Time Seen by Provider: 01/30/20 12:10 Primary Care Provider: [facility] [Provider Group] - Follow up as needed [facility] [Provider Group] - Follow up as needed [facility] [Provider Group] - Follow up as needed Mode of Arrival: Ambulatory Information source: Patient Notes: 24-year-old female presents to ED for complaint of left flank pain since last night. She states she has had dark cloudy urine for several days and UTI symptoms for yet several days. States she is on Depo so she is not . She is alert oriented respirations regular nonlabored speaking in full sentences. She states she does have a big family history of kidney and liver problems including kidney stones but she has not had any kidney stones herself. TRAVEL OUTSIDE OF THE [place] IN LAST 30 DAYS: No - HPI Patient complains to provider of: Other - Elan frequency urgency with left flank pain Onset: Other - dark cloudy urine Timing/Duration: Gradual - see HPI, Worse Quality of pain: Sharp Severity at maximum: Moderate Severity in ED: Moderate Pain Level: 3 Location: Left flank Vaginal bleeding (Compared to normal period): None LMP: On depo Associated symptoms: Urinary frequency, Urinary urgency, Other - Flank pain Exacerbated by: Denies Relieved by: Denies Similar symptoms previously: No Recently seen / treated by doctor: No - Related Data Allergies/Adverse Reactions: chlorpromazine HCl [From Thorazine] Allergy (Verified 09/15/17 19:56) Iodinated Contrast Media [IV Dye, Iodine Containing] Allergy (Verified 09/15/17 19:56) nalbuphine HCl [From Nubain] Allergy (Verified 09/15/17 19:56) Penicillins Allergy (Verified 09/15/17 19:56) quetiapine fumarate [From Seroquel] Allergy (Verified 09/15/17 19:56) anesthesia in epidural Allergy (Uncoded 03/26/18 16:14) Past Medical History - General Information source: Patient - Social History Smoking Status: Never Smoker Frequency of alcohol use: None Drug Abuse: None Lives with: Family Family History: Reviewed & Not Pertinent Patient has suicidal ideation: No Patient has homicidal ideation: No - Past Medical History Cardiac Medical History: Reports: None Pulmonary Medical History: Reports: Hx Asthma Neurological Medical History: Reports: Hx Migraine, Hx Seizures Endocrine Medical History: Reports: None Renal/ Medical History: Reports: None Malignancy Medical History: Reports: None GI Medical History: Reports: None Musculoskeletal Medical History: Reports None Skin Medical History: Reports None Psychiatric Medical History: Reports: Hx Anxiety, Hx Bipolar Disorder, Hx Depression Traumatic Medical History: Reports: None Infectious Medical History: Reports: None - Immunizations Hx Diphtheria, Pertussis, Tetanus Vaccination: Yes Review of Systems - Review of Systems Constitutional: No symptoms reported EENT: No symptoms reported Cardiovascular: No symptoms reported Respiratory: No symptoms reported Gastrointestinal: No symptoms reported Genitourinary: Frequency, Flank pain, Urgency Female Genitourinary: No symptoms reported Musculoskeletal: No symptoms reported Skin: No symptoms reported Hematologic/Lymphatic: No symptoms reported Neurological/Psychological: No symptoms reported -: Yes All other systems reviewed and negative Physical Exam - Vital signs Vitals: Temp Pulse Resp BP Pulse Ox 98.3 F 98 14 126/80 H 98 01/30/20 12:04 01/30/20 12:04 01/30/20 12:04 01/30/20 12:04 01/30/20 12:04 Interpretation: Normal - General General appearance: Appears well, Alert - HEENT Head: Normocephalic, Atraumatic Eyes: Normal Pupils: PERRL - Respiratory Respiratory status: No respiratory distress Chest status: Nontender Breath sounds: Normal Chest palpation: Normal - Cardiovascular Rhythm: Regular Heart sounds: Normal auscultation Murmur: No - Abdominal Inspection: Normal Distension: No distension Bowel sounds: Normal Tenderness: Nontender Organomegaly: No organomegaly - Back Back: Normal, Nontender - Extremities General upper extremity: Normal inspection, Nontender, Normal color, Normal ROM, Normal temperature General lower extremity: Normal inspection, Nontender, Normal color, Normal ROM, Normal temperature, Normal weight bearing. No: Love's sign - Neurological Neuro grossly intact: Yes Cognition: Normal Orientation: AAOx4 Humphrey Coma Scale Eye Opening: Spontaneous Av Coma Scale Verbal: Oriented Humphrey Coma Scale Motor: Obeys Commands Humphrey Coma Scale Total: 15 Speech: Normal Motor strength normal: LUE, RUE, LLE, RLE Sensory: Normal - Psychological Associated symptoms: Normal affect, Normal mood - Skin Skin Temperature: Warm Skin Moisture: Dry Skin Color: Normal Course - Re-evaluation Re-evalutation: 01/30/20 17:19 CT discussed with patient and written report of labs and CT given to patient. Patient does have small nonobstructing kidney stones. I have informed her 1 of these could have passed was toward have caused her prior pain. I have given her IV fluids. She states the pain is much better at this time. Patient was discharged home with instructions to follow-up with her primary care. Patient verbalized understanding and agreement with treatment plan. - Vital Signs Vital signs: Temp Pulse Resp BP Pulse Ox 97.9 F 83 16 115/63 100 01/30/20 14:37 01/30/20 14:37 01/30/20 14:37 01/30/20 14:37 01/30/20 14:37 - Laboratory Result Diagrams: 01/30/20 12:45 01/30/20 12:45 Laboratory results interpreted by me: 01/30/20 01/30/20 12:14 12:45 Chloride 108 H Urine Ketones TRACE H Urine Urobilinogen 2.0 H Leukocyte Esterase Rfl MODERATE H - Diagnostic Test Radiology reviewed: Image reviewed, Reports reviewed Discharge - Discharge Clinical Impression: Left nonobstructing kidney stone Condition: Stable Disposition: HOME, SELF-CARE Additional Instructions: KIDNEY STONE: You are passing or have passed a kidney stone. These stones are usually due to increased calcium or uric acid concentrations in your urine. Stones within the kidney itself are not painful. The pain occurs as the stone leaves the kidney to pass down the long tube, called the ureter, leading to the bladder. If the stone is small, it will usually pass by itself. Most patients can pass the stone at home. You will usually receive medications for pain, nausea or vomiting, and sometimes a medication to assist in passing the kidney stone. However, if the pain is very severe or if vomiting prevents you from taking oral pain medications, you may need to return for further treatment. Drink three or four quarts of fluids per day. You will be given pain medication (if needed) and urine strainers. Strain all your urine to see if the stone passes. If your doctor has asked you to bring the stone in for analysis, return with the stone once it has passed. Return if pain or vomiting become severe, if you develop a high fever, if you are unable to pass your urine, or if other unusual symptoms occur. Dehydration Dehydration can result from vomiting or diarrhea, fever, or decreased intake of fluids. If severe, hospitalization and intravenous fluids may be required. Most cases are treated at home with fluids by mouth. For the next 24 hours, drink lots of clear fluids. In mild cases, this can be soda pop or sports drinks. For more severe dehydration, the doctor may recommend special fluids such as Pedialyte or Lytren. Try to get three liters (3 quarts) of fluid per day. If vomiting occurs, continue to drink the fluids frequently (every 15 to 20 minutes), but in small amounts (one or two ounces). Depending on the type of dehydration, the doctor may prescribe antinausea medicine or potassium replacements. Call the doctor or return for re-examination if you become progressively weak, vomit repeatedly, or have other new symptoms. Intravenous (IV) Fluids As part of your care today, you received intravenous (IV) fluids. IV fluids are administered to patients who are dehydrated or to those who have certain chemical (electrolyte) abnormalities that need correcting. TORADOL INJECTION: You have been given an injection of ketorolac tromethamine (Toradol). This is an excellent, safe drug for pain control. It also has potent antiinflamma tory action. You should have significant pain relief within about one hour. Toradol is not addicting and is non-sedating. It does not interfere with driving or work. Call or return if you develop itching, hives, shortness of breath, or rash. ANTINAUSEA MEDICATION: You have been given a medication to suppress nausea and vomiting. This type of medication can be given as a shot, pill, or suppository. It will usually last for many hours. Pills and shots usually last six to eight hours, suppositories last about 12 hours. For the typical illness, only one or two doses of the medi cation may be necessary. Mild lightheadedness may occur. This type of medicine can cause drows iness. Do not drive or operate dangerous machinery while under its influence. Do not mix with alcohol. See your doctor at once if you have muscle spasms or tightness, or uncontrollable motions (particularly of the neck, mouth, or jaw). Persistent vomiting or severe lightheadedness should also be evaluated by the physician. FOLLOW-UP CARE: If you have been referred to a physician for follow-up care, call the physicians office for an appointment as you were instructed or within the next two days. If you experience worsening or a significant change in your symptoms, notify the physician immediately or return to the Emergency Department at any time for re-evaluation. Forms: Return to Work Referrals: [facility] [Provider Group] - Follow up as needed [facility] [Provider Group] - Follow up as needed [facility] [Provider Group] - Follow up as needed
[2020-01-30 12:43] LABS: APPEARANCE,URINE SLIGHTLY-CLOUDY; BILIRUBIN,URINE NEGATIVE (NEGATIVE); COLOR,URINE DARK YELLOW; GLUCOSE, URINE NEGATIVE (NEGATIVE); KETONES,URINE TRACE mg/dL (NEGATIVE); PROTEIN,URINE NEGATIVE (NEGATIVE); URINE SPECIFIC GRAVITY 1.025
[2020-01-30 13:03] LABS: ABSOLUTE EOSINOPHILS # (AUTO) 0.1 10^3/uL (0.0-0.6); ABSOLUTE LYMPHOCYTES (AUTO) 1.6 10^3/uL (0.5-4.7); ABSOLUTE MONOCYTES (AUTO) 0.3 10^3/uL (0.1-1.4); ABSOLUTE NEUT (AUTO) 2.9 10^3/uL (1.7-8.2); BASOPHILS % (AUTO) 0.8 % (0-2); EOSINOPHILS % (AUTO) 1.4 % (0-6); HEMATOCRIT 38.6 % (36.0-47.0); HEMOGLOBIN 13.6 g/dL (12.0-15.5); LYMPHOCYTES % (AUTO) 32.3 % (13-45); MEAN CORPUSCULAR HGB CONC 35.2 g/dL (32.0-36.0); MEAN CORPUSCULAR VOLUME 91 fl (80-97); MONOCYTES % (AUTO) 6.9 % (3-13); PLATELET COUNT 214 10^3/uL (150-450); RED BLOOD COUNT 4.25 10^6/uL (3.72-5.28); RED CELL DISTRIBUTION WIDTH 13.7 % (11.5-14.0); SEGMENTED NEUTROPHILS % (AUTO) 58.6 % (42-78); TOTAL CELLS COUNTED % (AUTO) 100 %
--- NOTE | 2020-01-30 13:20 | RADIOLOGY REPORT (SQ) ---
EXAM DESCRIPTION: CT ABD/PELVIS NO ORAL OR IV IMAGES COMPLETED DATE/TIME: 01/30/2020 1:00 pm REASON FOR STUDY: Left flank pain COMPARISON: None. TECHNIQUE: CT scan of the abdomen and pelvis performed without intravenous or oral contrast. Images reviewed with lung, soft tissue, and bone windows. Reconstructed coronal and sagittal MPR images revi ewed. All images stored on PACS. All CT scanners at this facility use dose modulation, iterative reconstruction, and/or weight based d osing when appropriate to reduce radiation dose to as low as reasonably achievable (ALARA). [facility]: Dose Right [facility]: CareDose [facility]: Dose Right [facility]: Teradose 4D [facility]: Smart Mamaherb RADIATION DOSE: CT Rad equipment meets quality standard of care and radiation dose reduction techniq ues were employed. CTDIvol: 7.8 mGy. DLP: 440 mGy-cm.mGy. LIMITATIONS: None. FINDINGS: LOWER CHEST: No significant findings. No nodules or infiltrates. NON-CONTRASTED LIVER, SPLEEN, ADRENALS: Evaluation limited by lack of IV contrast. No identified sign ificant masses. PANCREAS: No masses. No peripancreatic inflammatory changes. GALLBLADDER: No identified stones by CT criteria. No inflammatory changes to suggest cholecystitis. RIGHT KIDNEY AND URETER: No solid masses. No significant calcification. No hydronephrosis or hydroure ter. LEFT KIDNEY AND URETER: Minimal punctate nonobstructing calculus. AORTA AND RETROPERITONEUM: No aneurysm. No retroperitoneal masses or adenopathy. BOWEL AND PERITONEAL CAVITY: Moderate stool. Bowel loops otherwise unremarkable. No ascites. APPENDIX: Normal. PELVIS, BLADDER, AND ABDOMINAL WALL:No abnormal masses. No free fluid. Bladder normal. BONES: No significant findings. OTHER: No other significant finding. IMPRESSION: 1. Nonobstructive left nephrolithiasis. TECHNICAL DOCUMENTATION: JOB ID: [id number] Quality ID # [id number]: Final reports with documentation of one or more dose reduction techniques (e.g., Au tomated exposure control, adjustment of the mA and/or kV according to patient size, use of iterative reconstruction technique) 2010 [email or web address]- All Rights Reserved Reading location - IP/workstation name: [email or web address]
[2020-01-30 13:22] LABS: ALBUMIN 4.3 g/dL (3.5-5.0); ALKALINE PHOSPHATASE 41 U/L (38-126); ANION GAP 5 (5-19); ASPARTATE AMINO TRANSFERASE 18 U/L (14-36); BILIRUBIN,TOTAL 0.4 mg/dL (0.2-1.3); BLOOD UREA NITROGEN 11 mg/dL (7-20); CALCIUM 9.6 mg/dL (8.4-10.2); CARBON DIOXIDE 26 mmol/L (22-30); CHLORIDE 108 mmol/L (98-107); CREATINE KINASE 61 U/L (30-135); GLUCOSE 81 mg/dL (75-110); POTASSIUM 3.9 mmol/L (3.6-5.0); TOTAL PROTEIN 7.2 g/dL (6.3-8.2)
[2020-01-30 14:15] VITALS: BP 115/63
== END 2020-01-30 14:38 | disposition home or self-care (01) ==
LOC: ER 11:58
DX: N20.0 Calculus of kidney (principal); R10.9 Unspecified abdominal pain; R39.198 Other difficulties with micturition; R35.0 Frequency of micturition; R39.15 Urgency of urination; J45.909 Unspecified asthma, uncomplicated; Z88.8 Allergy status to other drugs, medicaments and biological substances
CPT/HCPCS: 99284; 96361; 96374; 36415; 82550; 85025; 81025; 80053; 81001; 74176; J1885; J7030

== ENCOUNTER 2020-03-07 23:37 | Emergency (ER) | payer SELFPAY ==
[2020-03-08] MEDS ORDERED: NORMAL SALINE 1000 ML 1,000 ML IV ONE (00:51)
[2020-03-08] MEDS ORDERED: LORAZEPAM INJ 2 MG/1 ML VIAL IV ONE (00:51)
--- NOTE | 2020-03-08 01:00 | ER Document Report ---
ED General - General Chief Complaint: Overdose Stated Complaint: POSSIBLE OVERDOSE Time Seen by Provider: 03/08/20 00:43 TRAVEL OUTSIDE OF THE [place] IN LAST 30 DAYS: No - HPI Notes: Patient is a 24-year-old female who presents to the emergency department, states she believes she accidentally ingested a marijuana edible. Her friend has medicinal marijuana, does make edibles with them. She states that they got mixed into regular care malls at a get together with family and friends. At approximately 7 PM she accidentally ingested some of these, and since then has been feeling altered. She states she feels her heart is racing, she feels nervous, shaky, and her lower extremities, "will not stop shaking, like a seizure." - Related Data Allergies/Adverse Reactions: chlorpromazine HCl [From Thorazine] Allergy (Verified 09/15/17 19:56) Iodinated Contrast Media [IV Dye, Iodine Containing] Allergy (Verified 09/15/17 19:56) nalbuphine HCl [From Nubain] Allergy (Verified 09/15/17 19:56) Penicillins Allergy (Verified 09/15/17 19:56) quetiapine fumarate [From Seroquel] Allergy (Verified 09/15/17 19:56) anesthesia in epidural Allergy (Uncoded 03/26/18 16:14) Home Medications: DEPO SHOT/ CONTROL 01/2018 Past Medical History - General Information source: Patient - Social History Smoking Status: Never Smoker Family History: Reviewed & Not Pertinent Patient has homicidal ideation: No Pulmonary Medical History: Reports: Hx Asthma Neurological Medical History: Reports: Hx Migraine, Hx Seizures Psychiatric Medical History: Reports: Hx Anxiety, Hx Bipolar Disorder, Hx Depression - Immunizations Hx Diphtheria, Pertussis, Tetanus Vaccination: Yes Review of Systems - Review of Systems Constitutional: See HPI Neurological/Psychological: See HPI -: Yes All other systems reviewed and negative Physical Exam - Vital signs Vitals: Temp 98.4 F 03/07/20 23:38 - Notes Notes: This is an anxious appearing 24-year-old female who appears her stated age, no acute distress. Vital signs reviewed, please refer to chart. Head is normocephalic, atraumatic. Pupils equal round, reactive to light. Neck is supple without meningismus. Heart is tachycardic with normal S1-S2. Lungs are clear to auscultation bilaterally. Abdomen is soft, nontender, normoactive bowel sounds throughout. Extremities without cyanosis, clubbing. Posterior calves are nontender. Peripheral pulses are equal. Skin is warm and dry. Pat ient is awake, alert, neurological exam is nonfocal. Course - Re-evaluation Re-evalutation: 03/08/20 01:13 Patient presents to the emergency department for evaluation. Laboratory investigations and EKG were ordered. The patient will be given IV fluids and Ativan. She is stable at this time, we will continue to monitor. 03/08/20 03:02 Patient feeling significantly improved. She remains mildly tachycardic, states this not abnormal for her. She does have a history of anxiety, states she feels much improved. I explained to her that this is all likely side effects of this accidental ingestion, secondary to the psychoactive substances and THC. Patient voiced understanding. She is told to avoid marijuana in the future, return to the ED with worsening, follow-up closely with primary care. - Vital Signs Vital signs: Temp Pulse Resp BP Pulse Ox 99.2 F 144 H 21 H 121/71 100 03/07/20 23:40 03/07/20 23:40 03/08/20 00:00 03/08/20 00:00 03/08/20 00:00 - Laboratory Result Diagrams: 03/08/20 00:11 03/08/20 00:11 Laboratory results interpreted by me: 03/08/20 03/08/20 00:11 00:24 Sodium 136.1 L Glucose 148 H Urine Ketones TRACE H Urine Blood MODERATE H Urine Urobilinogen 2.0 H Ur Leukocyte Esterase TRACE H Salicylates < 1.0 L Acetaminophen < 10 L - EKG Interpretation by Me Additional EKG results interpreted by me: 03/08/20 01:14 Sinus tachycardia with a rate of 106 bpm. Normal axis and intervals. No acute ST changes concerning for ischemia or infarction. Discharge - Discharge Clinical Impression: Anxiety Marijuana intoxication Qualifiers: Complication of substance-induced condition: with unspecified complication Qualified Code(s): F12.929 - Cannabis use, unspecified with intoxication, unspecified Condition: Stable Disposition: HOME, SELF-CARE Instructions: Anxiety ([facility]) Additional Instructions: Your symptoms tonight were all likely secondary to marijuana ingestion. Please avoid this in the future. Follow-up with your primary care provider next week. Return to the emergency department with worsening or new concerning symptoms of any sort.
[2020-03-08 01:02] LABS: ABSOLUTE LYMPHOCYTES (AUTO) 2.1 10^3/uL (0.5-4.7); ABSOLUTE MONOCYTES (AUTO) 0.4 10^3/uL (0.1-1.4); ABSOLUTE NEUT (AUTO) 3.6 10^3/uL (1.7-8.2); BASOPHILS % (AUTO) 0.4 % (0-2); EOSINOPHILS % (AUTO) 0.6 % (0-6); HEMATOCRIT 38.9 % (36.0-47.0); HEMOGLOBIN 13.6 g/dL (12.0-15.5); LYMPHOCYTES % (AUTO) 34.4 % (13-45); MEAN CORPUSCULAR HEMOGLOBIN 31.5 pg (27.0-33.4); MEAN CORPUSCULAR VOLUME 90 fl (80-97); MONOCYTES % (AUTO) 6.4 % (3-13); PLATELET COUNT 220 10^3/uL (150-450); RED BLOOD COUNT 4.32 10^6/uL (3.72-5.28); RED CELL DISTRIBUTION WIDTH 12.8 % (11.5-14.0); SEGMENTED NEUTROPHILS % (AUTO) 58.2 % (42-78); TOTAL CELLS COUNTED % (AUTO) 100 %; WHITE BLOOD COUNT 6.2 10^3/uL (4.0-10.5)
[2020-03-08 01:14] LABS: APPEARANCE,URINE SLIGHTLY-CLOUDY; BILIRUBIN,URINE NEGATIVE (NEGATIVE); CALCIUM OXALATE CRYSTALS,URINE RARE /HPF; COLOR,URINE YELLOW; GLUCOSE, URINE NEGATIVE (NEGATIVE); KETONES,URINE TRACE mg/dL (NEGATIVE); LEUKOCYTE ESTERASE,URINE TRACE (NEGATIVE); NITRITE,URINE NEGATIVE (NEGATIVE); PROTEIN,URINE NEGATIVE (NEGATIVE); URINE SPECIFIC GRAVITY 1.027
[2020-03-08 01:18] LABS: ALBUMIN 4.2 g/dL (3.5-5.0); ALKALINE PHOSPHATASE 48 U/L (38-126); ANION GAP 8 (5-19); ASPARTATE AMINO TRANSFERASE 19 U/L (14-36); BILIRUBIN,TOTAL 0.3 mg/dL (0.2-1.3); BLOOD UREA NITROGEN 13 mg/dL (7-20); CALCIUM 9.5 mg/dL (8.4-10.2); CARBON DIOXIDE 22 mmol/L (22-30); CHLORIDE 106 mmol/L (98-107); GLUCOSE 148 mg/dL (75-110); POTASSIUM 3.6 mmol/L (3.6-5.0); TOTAL PROTEIN 7.2 g/dL (6.3-8.2)
[2020-03-08 01:28] LABS: ACETAMINOPHEN < 10 ug/mL (10-30); ALCOHOL < 10 mg/dL (NONE DETECTED); SALICYLATE < 1.0 mg/dL (2.0-20.0)
[2020-03-08 02:18] LABS: URINE AMPHETAMINES SCREEN NEGATIVE; URINE BARBITURATES SCREEN NEGATIVE; URINE BENZODIAZEPINES SCREEN NEGATIVE; URINE COCAINE SCREEN NEGATIVE; URINE METHADONE SCREEN NEGATIVE; URINE PHENCYCLIDINE SCREEN NEGATIVE
[2020-03-08 02:27] LABS: URINE MARIJUANA (THC) SCREEN UNCONFIRMED POSITIVE
[2020-03-08 03:50] VITALS: BP 103/56
--- NOTE | 2020-03-08 07:15 | EKG REPORT ---
SEVERITY:- BORDERLINE ECG - SINUS TACHYCARDIA PROBABLE LEFT ATRIAL ABNORMALITY : Confirmed by: Mariano Parisi MD 08-Mar-2020 07:14:33
== END 2020-03-08 04:03 | disposition home or self-care (01) ==
LOC: ER 23:37
DX: F12.929 Cannabis use, unspecified with intoxication, unspecified (principal); F41.9 Anxiety disorder, unspecified; Z88.8 Allergy status to other drugs, medicaments and biological substances; Z88.0 Allergy status to penicillin; J45.909 Unspecified asthma, uncomplicated
CPT/HCPCS: 93005; 99284; 96361; 96374; 36415; 80307 ×4; 84703; 85025; 80053; 81001; 93010; J2060; J7030